=== PATIENT | female | born 1985 | race African-American/Black ===

== ENCOUNTER 2017-10-12 17:05 | Emergency (ER) | payer BC ==
[2017-10-12 18:13] LABS: Absolute Lymphocytes (CBC) 2.1 K/uL (0.7-4.9); Absolute Monocytes 0.5 K/uL (0.1-1.3); Absolute Neutrophil 6.2 K/uL (1.8-8.0); Basophils % 0.5 % (0-1.3); Eosinophils % 1.9 % (0-4.4); Hematocrit 36.9 % (36.0-45.0); Lymphocytes % 23.4 % (15.3-44.8); MCV 73.9 fL (80-100); MPV 7.7 fL (7.6-11.3); Monocytes % 5.4 % (3.3-12.3); RBC Red Blood Cell Count 4.99 M/uL (3.86-4.86)
--- NOTE | 2017-10-12 18:39 | RAD REPORT ---
EXAM DESCRIPTION: Lalo Single View10/12/2017 6:34 pm CLINICAL HISTORY: Chest pain COMPARISON: July 2017 FINDINGS: The lungs appear clear of acute infiltrate. The heart is normal size IMPRESSION: No acute abnormalities displayed
[2017-10-12 18:40] LABS: BUN Blood Urea Nitrogen 15 mg/dL (6-20); Bicarbonate 26 mEq/L (21-31); Glucose Level 121 mg/dL (65-120); Potassium 3.4 mEq/L (3.6-5.0); Sodium Level 135 mEq/L (135-145)
[2017-10-12] MEDS ORDERED: POTASSIUM CL SA 10 MEQ TAB PO ONE ×2 (18:53→18:54)
--- NOTE | 2017-10-12 20:04 | ER ---
Nurse's Notes [facility] Name: Tatyana Becerril Age: 32 yrs Sex: Female : 1985 Arrival Date: 10/12/2017 Time: 17:06 Bed 15 Private MD: Diagnosis: Chest pain, unspecified Presentation: 10/12 17:31 Presenting complaint: Patient states: Sternal chest pain that woke patient up from aj sleeping last week. Cough for 1 week. Also reports numbness to bilateral shoulders. Denies N/V. Transition of care: patient was not received from another setting of care. Onset of symptoms was October 05, 2017. Initial Sepsis Screen: Does the patient meet any 2 criteria? No. Patient's initial sepsis screen is negative. Does the patient have a suspected source of infection? No. Patient's initial sepsis screen is negative. Care prior to arrival: None. 17:31 Method Of Arrival: Ambulatory 17:31 Acuity: CAMDEN 3 Triage Assessment: 17:33 General: Appears in no apparent distress. comfortable, Behavior is calm, cooperative, aj appropriate for age. Pain: Complains of pain in chest Pain currently is 6 out of 10 on a pain scale. at worst was 9 out of 10 on a pain scale. Neuro: Level of Consciousness is awake, alert, obeys commands, Oriented to person, place, time, situation, Appropriate for age. Cardiovascular: Reports chest pain, Capillary refill < 3 seconds in bilateral fingers Patient's skin is warm and dry. Respiratory: Reports cough that is Airway is patent Respiratory effort is even, unlabored, Respiratory pattern is regular, symmetrical. Derm: Skin is intact, is healthy with good turgor, Skin is normal, black. 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 - Social history:: Smoking status: Patient/guardian denies using tobacco. Screenin:35 Abuse screen: Denies threats or abuse. Denies injuries from another. Nutritional jl7 screening: No deficits noted. Tuberculosis screening: No symptoms or risk factors identified. Fall Risk IV access (20 points). Total Simon Fall Scale indicates No Risk (0-24 pts). Assessment: 17:35 General: Appears in no apparent distress. uncomfortable, Behavior is calm, cooperative, jl7 appropriate for age. Pain: Complains of pain in mid-sternal area Pain radiates to right clavicle and left clavicle Pain currently is 8 out of 10 on a pain scale. Quality of pain is described as sharp, shooting, Pain began a week ago Is intermittent. Neuro: Level of Consciousness is awake, alert, obeys commands, Oriented to person, place, time, situation. Cardiovascular: Patient's skin is warm and dry. Respiratory: Airway is patent Respiratory effort is even, unlabored, Respiratory pattern is regular, symmetrical. GI: No signs and/or symptoms were reported involving the gastrointestinal system. : No signs and/or symptoms were reported regarding the genitourinary system. EENT: No signs and/or symptoms were reported regarding the EENT system. Derm: Skin is pink, warm \T\ dry. 19:08 Reassessment: Report received from LETICIA Vivas. NAD, AOX3. No reports of chest pain at bs1 this time. 19:30 Reassessment: Patient appears in no apparent distress at this time. Neuro: Level of bs1 Consciousness is awake, alert, obeys commands, Oriented to person, place, time, situation. Cardiovascular: Denies chest pain, palpitations, Capillary refill < 3 seconds Patient's skin is warm and dry. Respiratory: Airway is patent Trachea midline Respiratory effort is even, unlabored, Respiratory pattern is regular, symmetrical, Breath sounds are clear bilaterally. GI: No signs and/or symptoms were reported involving the gastrointestinal system. : No signs and/or symptoms were reported regarding the genitourinary system. EENT: No signs and/or symptoms were reported regarding the EENT system. Derm: Skin is pink, warm \T\ dry. Musculoskeletal: Circulation, motion, and sensation intact. Capillary refill < 3 seconds, Range of motion: intact in all extremities. 21:11 Reassessment: Patient appears in no apparent distress at this time. Patient and/or bs1 family updated on plan of care and expected duration. Pain level reassessed. Patient is alert, oriented x 3, equal unlabored respirations, skin warm/dry/pink. Patient states feeling better. Vital Signs: 17:33 BP 147 / 74; Pulse 96; Resp 17; Temp 97.7; Pulse Ox 100% on R/A; Weight 103.87 kg; aj Height 5 ft. 3 in. (160.02 cm); Pain 6/10; 18:47 BP 130 / 76; Pulse 84; Resp 16; Pulse Ox 100% ; jl7 19:45 BP 135 / 76; Pulse 74; Resp 14; Pulse Ox 99% on R/A; bs1 20:45 BP 137 / 79; Pulse 75; Pulse Ox 99% on R/A; bs1 21:08 BP 137 / 73; Pulse 75; Resp 14; Temp 98.0(O); Pulse Ox 99% on R/A; Pain 0/10; bs1 17:33 Body Mass Index 40.57 (103.87 kg, 160.02 cm) ED Course: 17:06 Patient arrived in ED. as 17:32 Triage completed. aj 17:33 Arm band placed on left wrist. Patient placed in an exam room. aj 17:34 Jim Lutz PA is PHCP. jr8 17:34 Richardson Berger MD is Attending Physician. jr8 17:35 Sangeetha Lacey RN is Primary Nurse. jl7 17:35 Patient has correct armband on for positive identification. Placed in gown. Bed in low jl7 position. Call light in reach. Side rails up X 1. security monitor on. Pulse ox on. NIBP on. Warm blanket given. 17:35 Patient maintains SpO2 saturation greater than 95% on room air. jl7 17:43 EKG done, by transportation engineering technician. reviewed by Jim HDZ. at1 18:00 Initial lab(s) drawn, by sc, sent to lab. Inserted saline lock: 20 gauge in left jl7 antecubital area, using aseptic technique. Blood collected. 18:33 X-ray completed. Portable x-ray completed in exam room. Patient tolerated procedure kc2 well. 18:35 XRAY Chest (1 view) In Process Unspecified. EDMS 19:07 Report given to LETICIA Torres. jl7 21:09 No provider procedures requiring assistance completed. IV discontinued, bleeding bs1 controlled, No redness/swelling at site. Pressure dressing applied. Administered Medications: 18:59 Drug: Potassium Chloride 20 mEq Route: PO; jl7 21:11 Follow up: Response: No adverse reaction bs1 Outcome: 20:04 Discharge ordered by . padma 21:09 Discharged to home ambulatory. bs1 21:09 Condition: stable 21:09 Discharge instructions given to patient, Instructed on discharge instructions, follow up and referral plans. medication usage, Demonstrated understanding of instructions, follow-up care, medications, Prescriptions given X 1, Patient states understanding of POC 21:13 Patient left the ED. bs1 Signatures: Dispatcher [employer] EDMS Jane Osuna, RN RN Isabel Lee Josh, PA PA jr8 Jane hall, graphic production artist EKG Tat1 Lisa Horton2 Sangeetha Lacey RN RN jl7 Kenyetta Salamanca, RN RN bs1
--- NOTE | 2017-10-12 20:05 | EDPHYS ---
Physician Documentation [facility] Name: Tatyana Becerril Age: 32 yrs Sex: Female : 1985 Arrival Date: 10/12/2017 Time: 17:06 Bed 15 Private MD: ED Physician Richardson Berger HPI: 10/12 18:38 This 32 yrs old Black Female presents to ER via Ambulatory with complaints of Cough, jr8 Chest Pain. 18:38 The patient or guardian reports cough, that is intermittent, described as mild, with no jr8 sputum. Onset: The symptoms/episode began/occurred acutely, yesterday. Severity of symptoms: At their worst the symptoms were mild, in the emergency department the symptoms are unchanged. Modifying factors: The symptoms are alleviated by nothing, the symptoms are aggravated by nothing. Associated signs and symptoms: Pertinent positives: chest pain. The patient has not experienced similar symptoms in the past. The patient has not recently seen a physician. 18:38 Stated that she had been coughing and thought it may be a cold. Last night while jr8 sleeping had sudden onset of severe chest pain. Feels better if she moves in a particular way to relieve pain . 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 - Social history:: Smoking status: Patient/guardian denies using tobacco. ROS: 18:38 Eyes: Negative for injury, pain, redness, and discharge, ENT: Negative for injury, jr8 pain, and discharge, Neck: Negative for injury, pain, and swelling, Abdomen/GI: Negative for abdominal pain, nausea, vomiting, diarrhea, and constipation, Back: Negative for injury and pain, MS/Extremity: Negative for injury and deformity, Skin: Negative for injury, rash, and discoloration, Neuro: Negative for headache, weakness, numbness, tingling, and seizure. 18:38 Cardiovascular: Positive for chest pain, Negative for edema, orthopnea, palpitations, paroxysmal nocturnal dyspnea. 18:38 Respiratory: Positive for cough, Negative for dyspnea on exertion, hemoptysis, orthopnea, pleurisy, shortness of breath, sputum production, wheezing. Exam: 18:38 Eyes: Pupils equal round and reactive to light, extra-ocular motions intact. Lids and jr8 lashes normal. Conjunctiva and sclera are non-icteric and not injected. Cornea within normal limits. Periorbital areas with no swelling, redness, or edema. ENT: Nares patent. No nasal discharge, no septal abnormalities noted. Tympanic membranes are normal and external auditory canals are clear. Oropharynx with no redness, swelling, or masses, exudates, or evidence of obstruction, uvula midline. Mucous membranes moist. Neck: Trachea midline, no thyromegaly or masses palpated, and no cervical lymphadenopathy. Supple, full range of motion without nuchal rigidity, or vertebral point tenderness. No Meningismus. Chest/axilla: Normal chest wall appearance and motion. Nontender with no deformity. No lesions are appreciated. Cardiovascular: Regular rate and rhythm with a normal S1 and S2. No gallops, murmurs, or rubs. Normal PMI, no JVD. No pulse deficits. Respiratory: Lungs have equal breath sounds bilaterally, clear to auscultation and percussion. No rales, rhonchi or wheezes noted. No increased work of breathing, no retractions or nasal flaring. Abdomen/GI: Soft, non-tender, with normal bowel sounds. No distension or tympany. No guarding or rebound. No evidence of tenderness throughout. Back: No spinal tenderness. No costovertebral tenderness. Full range of motion. Skin: Warm, dry with normal turgor. Normal color with no rashes, no lesions, and no evidence of cellulitis. MS/ Extremity: Pulses equal, no cyanosis. Neurovascular intact. Full, normal range of motion. Neuro: Awake and alert, GCS 15, oriented to person, place, time, and situation. Cranial nerves II-XII grossly intact. Motor strength 5/5 in all extremities. Sensory grossly intact. Cerebellar exam normal. Normal gait. Vital Signs: 17:33 BP 147 / 74; Pulse 96; Resp 17; Temp 97.7; Pulse Ox 100% on R/A; Weight 103.87 kg; aj Height 5 ft. 3 in. (160.02 cm); Pain 6/10; 18:47 BP 130 / 76; Pulse 84; Resp 16; Pulse Ox 100% ; jl7 19:45 BP 135 / 76; Pulse 74; Resp 14; Pulse Ox 99% on R/A; bs1 20:45 BP 137 / 79; Pulse 75; Pulse Ox 99% on R/A; bs1 21:08 BP 137 / 73; Pulse 75; Resp 14; Temp 98.0(O); Pulse Ox 99% on R/A; Pain 0/10; bs1 17:33 Body Mass Index 40.57 (103.87 kg, 160.02 cm) aj MDM: 17:34 Patient medically screened. jr8 20:03 Data reviewed: vital signs, nurses notes, lab test result(s), EKG, radiologic studies, jr8 plain films, and as a result, I will discharge patient. Data interpreted: Pulse oximetry: on room air is 100 %. Interpretation: normal. Counseling: I had a detailed discussion with the patient and/or guardian regarding: the historical points, exam findings, and any diagnostic results supporting the discharge/admit diagnosis, lab results, radiology results, the need for outpatient follow up, a family practitioner, to return to the emergency department if symptoms worsen or persist or if there are any questions or concerns that arise at home. 10/12 17:54 Order name: CBC with Diff; Complete Time: 18:32 8 10/12 17:54 Order name: Basic Metabolic Panel; Complete Time: 18:40 8 10/12 17:54 Order name: EKG - Nurse/Tech; Complete Time: 18:07 8 10/12 17:54 Order name: XRAY Chest (1 view); Complete Time: 18:40 [facility] 10/12 17:54 Order name: Troponin (emerg Dept Use Only); Complete Time: 18:37 8 10/12 17:54 Order name: IV; Complete Time: 18:07 8 Administered Medications: 18:59 Drug: Potassium Chloride 20 mEq Route: PO; jl7 21:11 Follow up: Response: No adverse reaction bs1 Disposition: 10/12/17 20:04 Discharged to Home. Impression: Chest pain, unspecified. - Condition is Stable. - Discharge Instructions: Nonspecific Chest Pain. - Prescriptions for Ibuprofen 800 mg Oral Tablet - take 1 tablet by ORAL route every 12 hours As needed take with food; 20 tablet. - Medication Reconciliation Form, Thank You Letter, Antibiotic Education, Prescription Opioid Use form. - Follow up: Private Physician; When: 2 - 3 days; Reason: Recheck today's complaints, Continuance of care, Re-evaluation by your physician. - Problem is new. - Symptoms have improved. Addendum: 10/15/2017 19:03 Co-signature as Attending Physician, Richardson Berger MD. r n Signatures: Dispatcher [employer] EDJane Garrett RN RN aj Nieto, Roman, MD MD rn Roszak, Josh, PA PA jr8 Sangeetha Lacey RN RN jl7 Kenyetta Salamanca RN RN bs1
[2017-10-12 21:23] VITALS: O2SAT 99
[2017-10-12 21:27] VITALS: BP 137/73; TEMP 98
--- NOTE | 2017-10-13 15:43 | EKG ---
Test Date: 2017-10-12 Test Time: 17:32:37 Alterations Sewer: JESS MEASUREMENT RESULTS: Intervals: Rate: 90 MT: 144 QRSD: 80 QT: 376 QTc: 459 Bowers: P: 52 MT: 144 QRS: -3 T: 39 INTERPRETIVE STATEMENTS: Normal sinus rhythm Normal ECG Compared to ECG 07/30/2017 22:08:08 T-wave abnormality no longer present Possible ischemia no longer present Electronically Signed On 10-13-17 15:38:06 CDT by Dada Chavez
== END 2017-10-12 21:13 | disposition home or self-care (01) ==
LOC: ER 17:05
DX: R07.9 Chest pain, unspecified (principal); R00.2 Palpitations; R05 Cough
CPT/HCPCS: 36415; 71045; 80048; 84484; 85025; 93005; 99285

== ENCOUNTER 2017-11-06 17:24 | Emergency (ER) | payer BC ==
--- NOTE | 2017-11-06 18:05 | ER ---
Nurse's Notes [facility] Name: Tatyana Becerril Age: 32 yrs Sex: Female : 1985 Arrival Date: 11/06/2017 Time: 17:27 Bed 8 Private MD: Diagnosis: Cough;Acute upper respiratory infection, unspecified Presentation: 11/06 17:39 Presenting complaint: Patient states: I have had a cough for 2 weeks and now I am la1 getting pain with my cough and I got dizzy at work. Transition of care: patient was not received from another setting of care. Onset of symptoms was November 06, 2017. Initial Sepsis Screen: Does the patient meet any 2 criteria? No. Patient's initial sepsis screen is negative. Does the patient have a suspected source of infection? No. Patient's initial sepsis screen is negative. Care prior to arrival: None. 17:39 Method Of Arrival: Ambulatory la1 17:39 Acuity: CAMDEN 3 la1 SEXER: 17:40 LMP 11/02/2017 la1 Historical: - Allergies: 17:40 No Known Allergies; la1 - PMHx: 17:40 None; la1 - Immunization history:: Adult Immunizations up to date. - Social history:: Smoking status: Patient/guardian denies using tobacco. - Family history:: not pertinent. Screenin:59 Abuse screen: Denies threats or abuse. Nutritional screening: No deficits noted. tw2 Tuberculosis screening: No symptoms or risk factors identified. Fall Risk None identified. Assessment: 17:57 General: Appears in no apparent distress. obese, well groomed, Behavior is calm, tw2 cooperative, appropriate for age. Pain: Denies pain. Neuro: Level of Consciousness is awake, alert, obeys commands, Oriented to person, place, time, situation. Cardiovascular: Denies chest pain, shortness of breath, Heart tones S1 S2 Capillary refill < 3 seconds Patient's skin is warm and dry. Respiratory: Respiratory effort is even, unlabored, Respiratory pattern is regular, symmetrical, Sputum is green Breath sounds are clear bilaterally. GI: No signs and/or symptoms were reported involving the gastrointestinal system. Abdomen is round obese, Bowel sounds present X 4 quads. : No signs and/or symptoms were reported regarding the genitourinary system. EENT: No signs and/or symptoms were reported regarding the EENT system. Derm: No signs and/or symptoms reported regarding the dermatologic system. Skin is intact, is healthy with good turgor, Skin temperature is warm. Musculoskeletal: Range of motion: intact in all extremities. 17:57 Neuro: Level of Consciousness is awake, alert, obeys commands, Oriented to person, aa5 place, time, situation. Respiratory: Airway is patent Respiratory effort is even, unlabored, Respiratory pattern is regular, symmetrical. Derm: Skin is dry, Skin is normal, Skin temperature is warm. Vital Signs: 17:40 BP 146 / 93; Pulse 74; Resp 15; Temp 98.2; Pulse Ox 100% on R/A; Weight 102.06 kg; la1 Height 5 ft. 3 in. (160.02 cm); 17:40 Body Mass Index 39.86 (102.06 kg, 160.02 cm) la1 ED Course: 17:27 Patient arrived in ED. sb2 17:40 Triage completed. la1 17:40 Arm band placed on left wrist. la1 17:54 Diane Alonso RN is Primary Nurse. tw2 17:55 Alan Moss MD is Attending Physician. [facility] 17:59 Bed in low position. Pulse ox on. NIBP on. tw2 18:24 X-ray completed. kp1 18:25 Chest Pa And Lat (2 Views) XRAY In Process Unspecified. EDMS 18:38 Awaiting for x-ray, Awaiting: results prior to discharge. tw2 18:48 No provider procedures requiring assistance completed. aa5 18:48 Patient did not have IV access during this emergency room visit. aa5 Administered Medications: 18:10 Drug: Zithromax 500 mg Route: PO; tw2 18:50 Follow up: Response: No adverse reaction aa5 Outcome: 18:04 Discharge ordered by . [facility] 18:50 Discharged to home ambulatory. aa5 18:50 Condition: stable 18:50 Discharge instructions given to patient, Instructed on discharge instructions, follow up and referral plans. medication usage, Demonstrated understanding of instructions, follow-up care, medications, Prescriptions given X 2. 18:51 Patient left the ED. aa5 Signatures: Dispatcher [employer] EDSC Alan Moss MD MD cha Calderon, Audri RN RN aa5 Abdon Pack RN RN la1 Diane Alonso RN RN tw2 Mary Beth Rowland kp1 Josselyn Franco sb2
--- NOTE | 2017-11-06 18:05 | EDPHYS ---
Physician Documentation [facility] Name: Tatyana Becerril Age: 32 yrs Sex: Female : 1985 Arrival Date: 11/06/2017 Time: 17:27 Bed 8 Private MD: ED Physician Alan Moss HPI: 11/06 18:00 This 32 yrs old Black Female presents to ER via Ambulatory with complaints of Chest ulysses Congestion, Cough, Dizziness. 18:00 The patient or guardian reports cough. Onset: The symptoms/episode began/occurred 2 ulysses week(s) ago. Severity of symptoms: At their worst the symptoms were mild, in the emergency department the symptoms are unchanged. Modifying factors: The symptoms are alleviated by nothing, the symptoms are aggravated by nothing. Associated signs and symptoms: The patient has no apparent associated signs or symptoms. The patient has not experienced similar symptoms in the past. 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 - Social history:: Smoking status: Patient/guardian denies using tobacco. - Family history:: not pertinent. ROS: 18:00 Constitutional: Negative for fever, chills, and weight loss, Eyes: Negative for injury, ulysses pain, redness, and discharge, ENT: Negative for injury, pain, and discharge, Neck: Negative for injury, pain, and swelling, Cardiovascular: Negative for chest pain, palpitations, and edema, Abdomen/GI: Negative for abdominal pain, nausea, vomiting, diarrhea, and constipation, Back: Negative for injury and pain, : Negative for injury, bleeding, discharge, and swelling, MS/Extremity: Negative for injury and deformity, Skin: Negative for injury, rash, and discoloration, Neuro: Negative for headache, weakness, numbness, tingling, and seizure, Psych: Negative for depression, anxiety, suicide ideation, homicidal ideation, and hallucinations, Allergy/Immunology: Negative for hives, rash, and allergies, Endocrine: Negative for neck swelling, polydipsia, polyuria, polyphagia, and marked weight changes, Hematologic/Lymphatic: Negative for swollen nodes, abnormal bleeding, and unusual bruising. 18:00 Respiratory: Positive for cough, with no reported sputum. Exam: 18:00 Constitutional: This is a well developed, well nourished patient who is awake, alert, ulysses and in no acute distress. Head/Face: Normocephalic, atraumatic. Eyes: Pupils equal round and reactive to light, extra-ocular motions intact. Lids and lashes normal. Conjunctiva and sclera are non-icteric and not injected. Cornea within normal limits. Periorbital areas with no swelling, redness, or edema. ENT: Nares patent. No nasal discharge, no septal abnormalities noted. Tympanic membranes are normal and external auditory canals are clear. Oropharynx with no redness, swelling, or masses, exudates, or evidence of obstruction, uvula midline. Mucous membranes moist. Neck: Trachea midline, no thyromegaly or masses palpated, and no cervical lymphadenopathy. Supple, full range of motion without nuchal rigidity, or vertebral point tenderness. No Meningismus. Chest/axilla: Normal chest wall appearance and motion. Nontender with no deformity. No lesions are appreciated. Cardiovascular: Regular rate and rhythm with a normal S1 and S2. No gallops, murmurs, or rubs. Normal PMI, no JVD. No pulse deficits. Respiratory: Lungs have equal breath sounds bilaterally, clear to auscultation and percussion. No rales, rhonchi or wheezes noted. No increased work of breathing, no retractions or nasal flaring. Abdomen/GI: Soft, non-tender, with normal bowel sounds. No distension or tympany. No guarding or rebound. No evidence of tenderness throughout. Back: No spinal tenderness. No costovertebral tenderness. Full range of motion. Female : Normal external genitalia. Skin: Warm, dry with normal turgor. Normal color with no rashes, no lesions, and no evidence of cellulitis. MS/ Extremity: Pulses equal, no cyanosis. Neurovascular intact. Full, normal range of motion. Neuro: Awake and alert, GCS 15, oriented to person, place, time, and situation. Cranial nerves II-XII grossly intact. Motor strength 5/5 in all extremities. Sensory grossly intact. Cerebellar exam normal. Normal gait. Psych: Awake, alert, with orientation to person, place and time. Behavior, mood, and affect are within normal limits. Vital Signs: 17:40 BP 146 / 93; Pulse 74; Resp 15; Temp 98.2; Pulse Ox 100% on R/A; Weight 102.06 kg; la1 Height 5 ft. 3 in. (160.02 cm); 17:40 Body Mass Index 39.86 (102.06 kg, 160.02 cm) la1 MDM: 18:03 Data reviewed: vital signs, nurses notes, lab test result(s), EKG, radiologic studies. [facility] 18:04 Patient medically screened. [facility] 11/06 18:15 Order name: Urine Dipstick--Ancillary (enter results) 11/06 18:15 Order name: Urine --Ancillary (enter results) 11/06 18:00 Order name: Urine Dipstick-Ancillary (obtain specimen); Complete Time: 18:13 [facility] 11/06 18:00 Order name: Chest Pa And Lat (2 Views) XRAY [facility] 11/06 18:00 Order name: EKG; Complete Time: 18:01 [facility] 11/06 18:00 Order name: Urine Test (obtain specimen); Complete Time: 18:13 [facility] 11/06 18:00 Order name: EKG - Nurse/Tech; Complete Time: 18:13 [facility] Administered Medications: 18:10 Drug: Zithromax 500 mg Route: PO; tw2 18:50 Follow up: Response: No adverse reaction aa5 Disposition: 11/06/17 18:04 Discharged to Home. Impression: Cough, Acute upper respiratory infection, unspecified. - Condition is Stable. - Discharge Instructions: Cool Mist Vaporizers, Upper Respiratory Infection, Adult, [id number], Cough, Adult, [id number], Cough, Adult. - Prescriptions for Cheratussin AC 10- 100 mg/5 mL Oral liquid - take 10 milliliter by ORAL route every 6 hours; 150 milliliter. Zithromax 500 mg Oral Tablet - take 1 tablet by ORAL route once daily for 4 days; 4 tablet. - Medication Reconciliation Form, Thank You Letter, Antibiotic Education, Prescription Opioid Use form. - Follow up: Private Physician; When: 2 - 3 days; Reason: Recheck today's complaints, Continuance of care, Re-evaluation by your physician. - Problem is new. - Symptoms have improved. Signatures: Dispatcher [employer] EDAlan Will MD MD cha Calderon, Audri RN RN aa5 Abdon Pack RN RN la1 Diane Alonso RN RN tw2 Corrections: (The following items were deleted from the chart) 18:51 18:04 11/06/2017 18:04 Discharged to Home. Impression: Cough; Acute upper respiratory aa5 infection, unspecified. Condition is Stable. Forms are Medication Reconciliation Form, Thank You Letter, Antibiotic Education, Prescription Opioid Use. Follow up: Private Physician; When: 2 - 3 days; Reason: Recheck today's complaints, Continuance of care, Re-evaluation by your physician. Problem is new. Symptoms have improved. ulysses
[2017-11-06] MEDS ORDERED: AZITHROMYCIN 250 MG TAB ONE (18:08)
[2017-11-06 18:43] LABS: Urine Blood 2+ (NEG); Urine Glucose NEGATIVE (NEG); Urine Protein NEGATIVE (NEG); Urine Specific Gravity >1.030 (1.005-1.030)
[2017-11-06 18:55] VITALS: BP 146/93; TEMP 98.2; O2SAT 100
--- NOTE | 2017-11-06 19:55 | RAD REPORT ---
EXAM DESCRIPTION: Lalo Sykes (2 Views)11/06/2017 6:28 pm CLINICAL HISTORY: Cough COMPARISON: None FINDINGS: The lungs appear clear of acute infiltrate. The heart is normal size Curvilinear lucencies overlying the upper chest and neck IMPRESSION: Curvilinear lucencies overlying the upper chest and neck presumably related to hair. Sub cutaneous emphysema can also have this appearance. If the patient has clinical symptoms to suggest th is then a repeat frontal chest film with the hair out of the field of view would be recommended for r e-evaluation
--- NOTE | 2017-11-07 08:01 | EKG ---
Test Date: 2017-11-06 Test Time: 18:09:48 Facilities Director: KIM MEASUREMENT RESULTS: Intervals: Rate: 72 SD: 152 QRSD: 78 QT: 412 QTc: 451 [place]: P: 43 SD: 152 QRS: 4 T: 29 INTERPRETIVE STATEMENTS: Normal sinus rhythm Low voltage QRS Borderline ECG Compared to ECG 10/12/2017 17:32:37 Low QRS voltage now present Electronically Signed On 11-07-17 07:59:49 CDT by Jem Delcid
== END 2017-11-06 18:51 | disposition home or self-care (01) ==
LOC: ER 17:24
DX: J06.9 Acute upper respiratory infection, unspecified (principal)
CPT/HCPCS: 71046; 81003; 81025; 93005; 99284

== ENCOUNTER 2018-06-27 10:29 | Emergency (ER) | payer BC ==
[2018-06-27] MEDS ORDERED: MAGNE/ALUM HYDROXD 30 ML UCUP ONE (11:27)
[2018-06-27] MEDS ORDERED: LIDOCAINE VISCOUS 2% SOLN 15 ML UDC ONE (11:27)
--- NOTE | 2018-06-27 12:03 | EKG ---
Test Date: 2018-06-27 Test Time: 11:26:09 Recreation Activities Coordinator: BRIAN MEASUREMENT RESULTS: Intervals: Rate: 75 MO: 146 QRSD: 76 QT: 386 QTc: 431 [place]: P: 70 MO: 146 QRS: 60 T: 48 INTERPRETIVE STATEMENTS: Normal sinus rhythm Low voltage QRS Borderline ECG Compared to ECG 11/06/2017 18:09:48 No significant changes Electronically Signed On 06-27-18 12:03:12 HOSE TURNER by Dada Chavez
--- NOTE | 2018-06-27 12:08 | ER ---
Nurse's Notes 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 Transition of care: patient was not received from another setting of care. Onset of symptoms was June 27, 2018. Risk Assessment: Do you want to hurt yourself or someone else? Patient reports no desire to harm self or others. Initial Sepsis Screen: Does the patient meet any 2 criteria? No. Patient's initial sepsis screen is negative. Does the patient have a suspected source of infection? No. Patient's initial sepsis screen is negative. Care prior to arrival: None. 10:34 Method Of Arrival: Ambulatory 10:34 Acuity: [place] 3 hj Triage Assessment: 10:36 General: Appears in no apparent distress. uncomfortable, Behavior is calm, cooperative, hj appropriate for age. Pain: Complains of pain in chest and abdomen. 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 - Social history:: Smoking status: Patient/guardian denies using tobacco, Patient/guardian denies using alcohol. - Ebola Screening: : Patient negative for fever greater than or equal to 101.5 degrees Fahrenheit, and additional compatible Ebola Virus Disease symptoms Patient denies exposure to infectious person Patient denies travel to an Ebola-affected area in the 21 days before illness onset. - Family history:: not pertinent. - Hospitalizations: : No recent hospitalization is reported. Screenin:37 Abuse screen: Denies threats or abuse. Denies injuries from another. Nutritional hj screening: No deficits noted. Tuberculosis screening: No symptoms or risk factors identified. Fall Risk None identified. Assessment: 11:27 General: Appears in no apparent distress. Pain: Complains of pain in abdomen and chest ls4 Pain currently is 7 out of 10 on a pain scale. Neuro: No deficits noted. Cardiovascular: No deficits noted. Respiratory: No deficits noted. Musculoskeletal: No deficits noted. 12:23 Reassessment: Patient appears in no apparent distress at this time. Patient and/or ls4 family updated on plan of care and expected duration. Pain level reassessed. Patient is alert, oriented x 3, equal unlabored respirations, skin warm/dry/pink. Patient states feeling better. Patient states symptoms have improved. Vital Signs: 10:37 BP 134 / 76; Pulse 82; Resp 18; Temp 98.1(TE); Pulse Ox 100% on R/A; Weight 107.05 kg; hj Height 5 ft. 3 in. (160.02 cm); Pain 7/10; 11:30 BP 129 / 70; Pulse 78; Resp 16; Temp 98.4; Pulse Ox 100% ; ls4 12:28 BP 130 / 72; Pulse 74; Resp 18; Temp 98.4; Pulse Ox 100% on R/A; Pain 0/10; ls4 10:37 Body Mass Index 41.81 (107.05 kg, 160.02 cm) hj ED Course: 10:34 Patient arrived in ED. sb2 10:35 Randy Marti is Private Physician. sb2 10:36 Triage completed. hj 10:37 Arm band placed on left wrist. hj 10:40 Patient has correct armband on for positive identification. Placed in gown. Bed in low hj position. Call light in reach. Side rails up X 1. 10:42 Mallika Vieira, LETICIA is Primary Nurse. ls4 10:51 Richardson Berger MD is Attending Physician. rn 11:33 EKG done, by mosaic technician. reviewed by Richardson Berger MD. tc 12:23 No provider procedures requiring assistance completed. ls4 Administered Medications: 11:15 Drug: GI Cocktail without - (Maalox Suspension 30 ml, Lidocaine Liquid 2 % 15 ls4 ml) Route: PO; 11:34 Follow up: Response: No adverse reaction ls4 Outcome: 12:07 Discharge ordered by . rn 12:23 Discharged to home ambulatory. ls4 12:23 Condition: stable 12:23 Discharge instructions given to patient, Instructed on discharge instructions, follow up and referral plans. medication usage, safety practices, Demonstrated understanding of instructions, follow-up care, medications. 12:29 Patient left the ED. ls4 Signatures: Richardson Berger MD MD rn Callis, Tiffany, concrete journeyman EKG Ttc Jose Rice RN RN Josselyn Franco 2 Mallika Vieira RN RN ls4 Corrections: (The following items were deleted from the chart) 10:39 10:34 Presenting complaint: Patient states: i feel like a bad acid reflux for moths hj now, yolanda been taking OTC acid correctional program officer for months and its not helping lately, now my chest hurts; non radiating pain; denies taking meds TRAVEL PT:denies N/V; hj 10:40 10:37 Pulse 82bpm; Resp 18bpm; Pulse Ox 100% RA; Temp 98.1F Temporal; 107.05 kg; Height hj 5 ft. 3 in.; BMI: 41.8; Pain 7/10; hj
--- NOTE | 2018-06-27 12:08 | EDPHYS ---
Physician Documentation [facility] Name: Tatyana Becerril Age: 32 yrs Sex: Female : 1985 Arrival Date: 06/27/2018 Time: 10:34 Bed 24 Private MD: Randy Marti ED Physician Richardson Berger HPI: 06/27 11:02 This 32 yrs old Black Female presents to ER via Ambulatory with complaints of acid rn reflux. 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 . Onset: The symptoms/episode began/occurred last night. Severity of symptoms: At their worst the symptoms were mild in the emergency department the symptoms are unchanged. The patient has experienced similar episodes in the past. The patient has not recently seen a physician. 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 - Social history:: Smoking status: Patient/guardian denies using tobacco, Patient/guardian denies using alcohol. - Ebola Screening: : Patient negative for fever greater than or equal to 101.5 degrees Fahrenheit, and additional compatible Ebola Virus Disease symptoms Patient denies exposure to infectious person Patient denies travel to an Ebola-affected area in the 21 days before illness onset. - Family history:: not pertinent. - Hospitalizations: : No recent hospitalization is reported. ROS: 11:02 Constitutional: Negative for fever, chills, and weight loss, Eyes: Negative for injury, rn pain, redness, and discharge, Cardiovascular: Negative for palpitations, and edema, Respiratory: Negative for shortness of breath, cough, wheezing, and pleuritic chest pain, Abdomen/GI: Negative for abdominal pain, nausea, vomiting, diarrhea, and constipation, MS/Extremity: Negative for injury and deformity, Skin: Negative for injury, rash, and discoloration, Neuro: Negative for headache, weakness, numbness, tingling, and seizure. Exam: 11:02 Constitutional: This is a well developed, well nourished patient who is awake, alert, rn and in no acute distress. Head/Face: Normocephalic, atraumatic. ENT: MMM Cardiovascular: Regular rate and rhythm. No pulse deficits. Respiratory: Lungs have equal breath sounds bilaterally, clear to auscultation, No increased work of breathing, no retractions or nasal flaring. Abdomen/GI: soft, non-tender Skin: Warm, dry with normal turgor. Normal color with no rashes, no lesions, and no evidence of cellulitis. MS/ Extremity: Pulses equal, no cyanosis. Neurovascular intact. Full, normal range of motion. Equal circumference. Neuro: Awake and alert, GCS 15, oriented to person, place, time, and situation. Vital Signs: 10:37 BP 134 / 76; Pulse 82; Resp 18; Temp 98.1(TE); Pulse Ox 100% on R/A; Weight 107.05 kg; hj Height 5 ft. 3 in. (160.02 cm); Pain 7/10; 11:30 BP 129 / 70; Pulse 78; Resp 16; Temp 98.4; Pulse Ox 100% ; ls4 12:28 BP 130 / 72; Pulse 74; Resp 18; Temp 98.4; Pulse Ox 100% on R/A; Pain 0/10; ls4 10:37 Body Mass Index 41.81 (107.05 kg, 160.02 cm) MDM: 10:51 Patient medically screened. rn 12:06 Differential Diagnosis acid reflux, GERD. Data reviewed: vital signs, nurses notes, clinical laboratory scientist test result(s), urinalysis, and as a result, I will discharge patient. Counseling: I had a detailed discussion with the patient and/or guardian regarding: the historical points, exam findings, and any diagnostic results supporting the discharge/admit diagnosis, lab results, the need for outpatient follow up, to return to the emergency department if symptoms worsen or persist or if there are any questions or concerns that arise at home. Response to treatment: the patient's symptoms have markedly improved after treatment, and as a result, I will discharge patient. Special discussion: I discussed with the patient/guardian in detail that at this point there is no indication for admission to the hospital. It is understood, however, that if the symptoms persist or worsen the patient needs to return immediately for re-evaluation. ED course: Recommended diet modification and continuation of reflux meds.. 06/27 11:31 Order name: Urine Dipstick--Ancillary (enter results); Complete Time: 12:19 eb 06/27 11:31 Order name: Urine --Ancillary (enter results); Complete Time: 12:19 eb 06/27 10:40 Order name: EKG; Complete Time: 11:05 hj 06/27 10:58 Order name: Urine Dipstick-Ancillary (obtain specimen); Complete Time: 11:26 rn 06/27 10:58 Order name: Urine Test (obtain specimen); Complete Time: 11:26 rn Administered Medications: 11:15 Drug: GI Cocktail without - (Maalox Suspension 30 ml, Lidocaine Liquid 2 % 15 ls4 ml) Route: PO; 11:34 Follow up: Response: No adverse reaction ls4 Disposition: 06/27/18 12:07 Discharged to Home. Impression: Gastro-esophageal reflux disease. - Condition is Stable. - Discharge Instructions: Gastroesophageal Reflux Disease, Adult. - Medication Reconciliation Form, Thank You Letter, Antibiotic Education, Prescription Opioid Use form. - Follow up: Private Physician; When: As needed; Reason: Recheck today's complaints, Re-evaluation by your physician. - Problem is an ongoing problem. - Symptoms have improved. Signatures: Dispatcher [employer] EDMS Richardsno Berger MD MD rn Joaquin, Henry, RN RN hj Stewart, Lisa, RN RN ls4 Corrections: (The following items were deleted from the chart) 12:29 12:07 06/27/2018 12:07 Discharged to Home. Impression: Gastro-esophageal reflux ls4 disease. Condition is Stable. Forms are Medication Reconciliation Form, Thank You Letter, Antibiotic Education, Prescription Opioid Use. Follow up: Private Physician; When: As needed; Reason: Recheck today's complaints, Re-evaluation by your physician. Problem is an ongoing problem. Symptoms have improved. rn
[2018-06-27 12:11] LABS: Urine Blood NEGATIVE (NEG); Urine Glucose NEGATIVE (NEG); Urine Protein TRACE (NEG)
[2018-06-27 16:26] VITALS: O2SAT 100
[2018-06-27 16:27] VITALS: TEMP 98.4
[2018-06-27 16:29] VITALS: BP 130/72
== END 2018-06-27 12:29 | disposition home or self-care (01) ==
LOC: ER 10:29
DX: K21.9 Gastro-esophageal reflux disease without esophagitis (principal)
CPT/HCPCS: 81003; 81025; 93005; 99283

== ENCOUNTER 2018-07-28 12:01 | Emergency (ER) | payer BC ==
--- NOTE | 2018-07-28 12:59 | RAD REPORT ---
EXAM DESCRIPTION: Lalo Sykes (2 Views)07/28/2018 12:43 pm CLINICAL HISTORY: Chest pain COMPARISON: None FINDINGS: The lungs appear clear of acute infiltrate. The heart is normal size IMPRESSION: No acute abnormalities displayed
[2018-07-28] MEDS ORDERED: IBUPROFEN 400 MG TAB ONE (16:38)
[2018-07-28 16:54] LABS: Urine Blood NEGATIVE (NEG); Urine Glucose NEGATIVE (NEG); Urine Protein NEGATIVE (NEG); Urine pH 5.5 (5.0-7.0)
--- NOTE | 2018-07-28 17:05 | ER ---
Nurse's Notes [facility] Name: Tatyana Becerril Age: 32 yrs Sex: Female : 1985 Arrival Date: 07/28/2018 Time: 12:05 Bed 27 Private MD: Randy Marti Diagnosis: Chest pain on breathing;Chest pain, unspecified Presentation: 07/28 12:08 Presenting complaint: Patient states: left mid back pain hurts worse with breathing and sv radiates down to the LLE x 1 week. c/o left arm tingling. Transition of care: patient was not received from another setting of care. Onset of symptoms was July 2018. Care prior to arrival: None. 12:08 Method Of Arrival: Ambulatory sv 12:08 Acuity: [place] 3 sv 15:49 Risk Assessment: Do you want to hurt yourself or someone else? Patient reports no mg2 desire to harm self or others. Initial Sepsis Screen: Does the patient meet any 2 criteria? No. Patient's initial sepsis screen is negative. Does the patient have a suspected source of infection? No. Patient's initial sepsis screen is negative. Triage Assessment: 12:11 General: Appears in no apparent distress. uncomfortable, Behavior is calm, cooperative, sv appropriate for age. Pain: Complains of pain in left mid back Pain radiates to left arm and left leg Pain currently is 8 out of 10 on a pain scale. Neuro: Level of Consciousness is awake, alert, obeys commands, Oriented to person, place, time, situation, Gait is steady. Respiratory: Respiratory effort is even, unlabored, Respiratory pattern is regular, symmetrical. 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 - Social history:: Smoking status: Patient/guardian denies using tobacco. - Ebola Screening: : No symptoms or risks identified at this time. Screenin:49 Abuse screen: Denies threats or abuse. Denies injuries from another. Nutritional mg2 screening: No deficits noted. Tuberculosis screening: No symptoms or risk factors identified. Fall Risk None identified. Assessment: 15:48 Reassessment: patient sleeping on bed. mg2 16:34 General: Appears in no apparent distress. comfortable, Behavior is calm, cooperative. mg2 Pain: Pain: Complains of pain in left mid back Pain radiates to left leg Pain currently is 5 out of 10 on a pain scale. Quality of pain is described as aching, Pain began gradually, Is intermittent. 16:42 Neuro: Level of Consciousness is awake, alert, obeys commands, Oriented to person, mg2 place, time, situation. Cardiovascular: Capillary refill < 3 seconds Patient's skin is warm and dry. Respiratory: Airway is patent Respiratory effort is even, unlabored, Respiratory pattern is regular, symmetrical. GI: No signs and/or symptoms were reported involving the gastrointestinal system. : No signs and/or symptoms were reported regarding the genitourinary system. EENT: No signs and/or symptoms were reported regarding the EENT system. Derm: Skin is intact, is healthy with good turgor, Skin is pink, warm \T\ dry. normal. Musculoskeletal: Circulation, motion, and sensation intact. Capillary refill < 3 seconds, Reports pain in left mid back. Vital Signs: 12:09 BP 128 / 89; Pulse 83; Resp 18; Temp 98.4; Pulse Ox 100% ; Weight 106.14 kg; Height 5 sv ft. 3 in. (160.02 cm); Pain 8/10; 16:44 BP 130 / 86; Pulse 74; Resp 18; Pulse Ox 100% on R/A; Pain 4/10; mg2 12:09 Body Mass Index 41.45 (106.14 kg, 160.02 cm) sv ED Course: 12:05 Patient arrived in ED. sb2 12:05 Randy Marti is Private Physician. sb2 12:09 Triage completed. sv 12:11 Arm band placed on Patient placed in waiting room, Patient notified of wait time. sv 12:46 Chest Pa And Lat (2 Views) XRAY In Process Unspecified. EDMS 14:31 Mono Turcios MD is Attending Physician. kdr 14:52 Christiano Miller, LETICIA is Primary Nurse. mg2 15:49 Patient has correct armband on for positive identification. mg2 15:49 No provider procedures requiring assistance completed. Patient did not have IV access mg2 during this emergency room visit. 17:04 Randy Marti is Referral Physician. kdr Administered Medications: 16:34 Drug: Ibuprofen 800 mg Route: PO; mg2 17:17 Follow up: Response: No adverse reaction; Marked relief of symptoms mg2 Outcome: 17:04 Discharge ordered by . kdr 17:17 Discharged to home ambulatory. mg2 17:17 Condition: stable 17:17 Discharge instructions given to patient, Instructed on discharge instructions, follow up and referral plans. medication usage, Demonstrated understanding of instructions, follow-up care, medications, Prescriptions given X 1. 17:17 Patient left the ED. mg2 Signatures: Dispatcher [employer] Annie Stoner, RN RN Mono Turcios MD MD [facility] Josselyn Franco 2 Christiano Miller RN RN mg2 Corrections: (The following items were deleted from the chart) 12:11 12:09 Pulse 83bpm; Resp 18bpm; Pulse Ox 100%; Temp 98.4F; 106.14 kg; Height 5 ft. 3 sv in.; BMI: 41.4; Pain 8/10; sv 16:43 16:34 Pain: mg2 mg2
--- NOTE | 2018-07-28 17:05 | EDPHYS ---
Physician Documentation [facility] Name: Tatyana Becerril Age: 32 yrs Sex: Female : 1985 Arrival Date: 07/28/2018 Time: 12:05 Bed 27 Private MD: Randy Marti ED Physician Mono Turcios HPI: 07/28 16:18 This 32 yrs old Black Female presents to ER via Ambulatory with complaints of Back Pain kdr - UPPER. 16:18 The patient presents with pain that is acute, with no known mechanism of injury. The kdr symptoms are located in the left subscapular area. Onset: The symptoms/episode began/occurred suddenly, this morning. The pain does not radiate. Associated signs and symptoms: The patient has no apparent associated signs or symptoms. The problem was sustained without known cause. Modifying factors: The patient symptoms are alleviated by remaining still, the patient symptoms are aggravated by any movement, bending, coughing, movement, Deep breathing, twisting of torso. Severity of symptoms: At their worst the symptoms were very mild, in the emergency department the symptoms are unchanged. The patient has not experienced similar symptoms in the past. The patient has not recently seen a physician. 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 - Social history:: Smoking status: Patient/guardian denies using tobacco. - Ebola Screening: : No symptoms or risks identified at this time. ROS: 16:18 Constitutional: Negative for fever, chills, and weight loss, Eyes: Negative for injury, kdr pain, redness, and discharge, ENT: Negative for injury, pain, and discharge, Neck: Negative for injury, pain, and swelling, Cardiovascular: Negative for chest pain, palpitations, and edema, Respiratory: Negative for shortness of breath, cough, wheezing, and pleuritic chest pain, Abdomen/GI: Negative for abdominal pain, nausea, vomiting, diarrhea, and constipation, : Negative for injury, bleeding, discharge, and swelling, MS/Extremity: Negative for injury and deformity, Skin: Negative for injury, rash, and discoloration, Neuro: Negative for headache, weakness, numbness, tingling, and seizure activity. Psych: Negative for depression, anxiety, suicide ideation, homicidal ideation, and hallucinations, Allergy/Immunology: Negative for hives, rash, and allergies, Endocrine: Negative for neck swelling, polydipsia, polyuria, polyphagia, and marked weight changes, Hematologic/Lymphatic: Negative for swollen nodes, abnormal bleeding, and unusual bruising. 16:18 Back: Positive for pain with movement, Negative for decreased range of motion, pain at rest, radiated pain. Exam: 16:18 Constitutional: This is a well developed, well nourished patient who is awake, alert, kdr and in no acute distress. Head/Face: Normocephalic, atraumatic. Eyes: Pupils equal round and reactive to light, extra-ocular motions intact. Lids and lashes normal. Conjunctiva and sclera are non-icteric and not injected. Cornea within normal limits. Periorbital areas with no swelling, redness, or edema. Neck: Trachea midline, no thyromegaly or masses palpated, and no cervical lymphadenopathy. Supple, full range of motion without nuchal rigidity, or vertebral point tenderness. No Meningismus. Chest/axilla: Normal chest wall appearance and motion. Nontender with no deformity. No lesions are appreciated. Cardiovascular: Regular rate and rhythm with a normal S1 and S2. No gallops, murmurs, or rubs. Normal PMI, no JVD. No pulse deficits. Respiratory: Lungs have equal breath sounds bilaterally, clear to auscultation and percussion. No rales, rhonchi or wheezes noted. No increased work of breathing, no retractions or nasal flaring. Abdomen/GI: Soft, non-tender, with normal bowel sounds. No distension or tympany. No guarding or rebound. No evidence of tenderness throughout. Skin: Warm, dry with normal turgor. Normal color with no rashes, no lesions, and no evidence of cellulitis. MS/ Extremity: Pulses equal, no cyanosis. Neurovascular intact. Full, normal range of motion. Neuro: Awake and alert, GCS 15, oriented to person, place, time, and situation. Cranial nerves II-XII grossly intact. Motor strength 5/5 in all extremities. Sensory grossly intact. Cerebellar exam normal. Normal gait. Psych: Awake, alert, with orientation to person, place and time. Behavior, mood, and affect are within normal limits. 16:18 Back: pain, that is mild, of the left subscapular area, ROM is painful, with all movement, normal spinal alignment noted, CVA tenderness, that is mild. Vital Signs: 12:09 BP 128 / 89; Pulse 83; Resp 18; Temp 98.4; Pulse Ox 100% ; Weight 106.14 kg; Height 5 sv ft. 3 in. (160.02 cm); Pain 8/10; 16:44 BP 130 / 86; Pulse 74; Resp 18; Pulse Ox 100% on R/A; Pain 4/10; mg2 12:09 Body Mass Index 41.45 (106.14 kg, 160.02 cm) sv MDM: 16:18 Data reviewed: vital signs, nurses notes, lab test result(s), EKG, radiologic studies. kdr Counseling: I had a detailed discussion with the patient and/or guardian regarding: the historical points, exam findings, and any diagnostic results supporting the discharge/admit diagnosis, lab results, radiology results, the need for outpatient follow up. 17:04 Patient medically screened. kdr 07/28 16:45 Order name: Urine Dipstick--Ancillary (enter results) eb 07/28 16:45 Order name: Urine --Ancillary (enter results) eb 07/28 12:12 Order name: Chest Pa And Lat (2 Views) XRAY; Complete Time: 14:31 sv 07/28 16:18 Order name: Urine Dipstick-Ancillary (obtain specimen); Complete Time: 16:34 kdr Administered Medications: 16:34 Drug: Ibuprofen 800 mg Route: PO; mg2 17:17 Follow up: Response: No adverse reaction; Marked relief of symptoms mg2 Disposition: 07/28/18 17:04 Discharged to Home. Impression: Chest pain on breathing, Chest pain, unspecified. - Condition is Stable. - Discharge Instructions: Costochondritis, [id number], Chest Wall Pain, [id number]. - Prescriptions for Ibuprofen 800 mg Oral Tablet - take 1 tablet by ORAL route every 8 hours As needed take with food; 30 tablet. - Medication Reconciliation Form, Thank You Letter form. - Follow up: Randy Marti; When: 2 - 3 days; Reason: If symptoms return, Further diagnostic work-up, Recheck today's complaints, Continuance of care, Re-evaluation by your physician. - Problem is new. - Symptoms have improved. Signatures: Dispatcher [employer] EDAnnie Koehler, RN RN Mono Turcios MD MD kdr Gardose, Michele RN RN mg2 Corrections: (The following items were deleted from the chart) 17:17 17:04 07/28/2018 17:04 Discharged to Home. Impression: Chest pain on breathing; Chest mg2 pain, unspecified. Condition is Stable. Forms are Medication Reconciliation Form, Thank You Letter, Antibiotic Education, Prescription Opioid Use. Follow up: Randy Marti; When: 2 - 3 days; Reason: If symptoms return, Further diagnostic work-up, Recheck today's complaints, Continuance of care, Re-evaluation by your physician. Problem is new. Symptoms have improved. kdr
[2018-07-28 17:27] VITALS: TEMP 98.4; O2SAT 100
[2018-07-28 17:32] VITALS: BP 130/86
== END 2018-07-28 17:17 | disposition home or self-care (01) ==
LOC: ER 12:01
DX: R07.9 Chest pain, unspecified (principal)
CPT/HCPCS: 71046; 81003; 81025; 99283

== ENCOUNTER 2018-10-11 14:08 | Emergency (ER) | payer BC ==
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
[2018-10-11 18:41] LABS: Urine Blood NEGATIVE (NEG); Urine Glucose NEGATIVE (NEG); Urine Protein NEGATIVE (NEG)
== END 2018-10-11 16:02 | disposition home or self-care (01) ==
LOC: ER 14:08
DX: S33.5XXA Sprain of ligaments of lumbar spine, initial encounter (principal); V43.52XA Car driver injured in collision with other type car in traffic accident, initial encounter; Y93.9 Activity, unspecified; Y92.410 Unspecified street and highway as the place of occurrence of the external cause
CPT/HCPCS: 72100; 81003; 81025; 99284

== ENCOUNTER 2018-11-05 07:52 | Emergency (ER) | payer BC ==
[2018-11-05] MEDS ORDERED: DEXAMETHASONE 10 MG/ML VIAL ONE (09:16)
[2018-11-05] MEDS ORDERED: IBUPROFEN 400 MG TAB ONE (09:16)
[2018-11-05 09:28] LABS: Urine Blood NEGATIVE (NEG); Urine Glucose NEGATIVE (NEG); Urine Protein NEGATIVE (NEG); Urine Specific Gravity >1.030 (1.005-1.030)
--- NOTE | 2018-11-05 10:02 | ER ---
Nurse's Notes [facility] Name: Tatyana Becerril Age: 33 yrs Sex: Female : 1985 Arrival Date: 11/05/2018 Time: 07:55 Bed 14 Private MD: Diagnosis: Acute pharyngitis Presentation: 11/05 07:59 Presenting complaint: Patient states: C/o sore throat pain 10/10, hurts to swallow. rb1 Transition of care: patient was not received from another setting of care. Onset of symptoms was November 04, 2018. Risk Assessment: Do you want to hurt yourself or someone else? Patient reports no desire to harm self or others. Initial Sepsis Screen: Does the patient meet any 2 criteria? No. Patient's initial sepsis screen is negative. Does the patient have a suspected source of infection? No. Patient's initial sepsis screen is negative. Care prior to arrival: None. 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 - Social history:: Smoking status: Patient/guardian denies using tobacco. - Ebola Screening: : Patient negative for fever greater than or equal to 101.5 degrees Fahrenheit, and additional compatible Ebola Virus Disease symptoms. Screenin:59 Abuse screen: Denies threats or abuse. Nutritional screening: No deficits noted. rb1 Tuberculosis screening: No symptoms or risk factors identified. Fall Risk None identified. Assessment: 07:59 General: Appears uncomfortable, Behavior is calm, cooperative. General: Denies fever. rb1 Pain: Complains of pain in throat Pain currently is 10 out of 10 on a pain scale. Pain began 1 day ago. Neuro: Level of Consciousness is awake, alert, obeys commands, Oriented to person, place, time, situation. Cardiovascular: Capillary refill < 3 seconds is brisk in bilateral fingers. Respiratory: Reports cough that is productive, green sputum Airway is patent Respiratory effort is even, unlabored, Respiratory pattern is regular, symmetrical, Breath sounds are clear bilaterally. GI: No signs and/or symptoms were reported involving the gastrointestinal system. : No signs and/or symptoms were reported regarding the genitourinary system. EENT: Throat is reddened. Derm: Skin is dry, Skin is normal, Skin temperature is warm. 08:55 Reassessment: Patient appears in no apparent distress at this time. No changes from rb1 previously documented assessment. 09:53 Reassessment: Patient appears in no apparent distress at this time. Patient and/or rb1 family updated on plan of care and expected duration. Pain level reassessed. Patient is alert, oriented x 3, equal unlabored respirations, skin warm/dry/pink. Vital Signs: 07:59 BP 142 / 92; Pulse 83; Resp 17; Temp 98.7(O); Pulse Ox 99% on R/A; Weight 108.86 kg rb1 (R); Height 5 ft. 3 in. (160.02 cm) (R); Pain 10/10; 08:55 BP 138 / 89; Pulse 80; Resp 17; Temp 98.5(O); Pulse Ox 100% on R/A; Pain 9/10; rb1 09:53 BP 141 / 91; Pulse 85; Resp 16; Temp 98.4(O); Pulse Ox 100% on R/A; Pain 8/10; rb1 07:59 Body Mass Index 42.51 (108.86 kg, 160.02 cm) rb1 ED Course: 07:55 Patient arrived in ED. tw3 07:59 Patient has correct armband on for positive identification. Bed in low position. Call rb1 light in reach. Side rails up X 1. Pulse ox on. NIBP on. 07:59 Arm band placed on left wrist. rb1 08:00 Laureano Porter NP is PHCP. pm1 08:00 Milind Mendoza MD is Attending Physician. pm1 08:06 Kanwal Rossi, LETICIA is Primary Nurse. rb1 08:08 Triage completed. rb1 10:13 No provider procedures requiring assistance completed. Patient did not have IV access rb1 during this emergency room visit. Administered Medications: 09:05 Drug: Decadron 10 mg Route: IM; Site: left deltoid; rb1 09:20 Follow up: Response: No adverse reaction rb1 09:05 Drug: Ibuprofen 800 mg Route: PO; rb1 09:53 Follow up: Response: No adverse reaction; Pain is decreased rb1 Outcome: 10:01 Discharge ordered by . pm1 10:13 Patient left the ED. rb1 10: Discharged to home ambulatory. rb1 10: Condition: stable 10:13 Discharge instructions given to patient, Instructed on discharge instructions, follow up and referral plans. Demonstrated understanding of instructions, follow-up care, Prescriptions given X none Signatures: Kanwal Rossi RN RN rb1 Laureano Porter NP BALLET PROFESSOR pm1 Vianey Arango tw3
--- NOTE | 2018-11-05 10:02 | EDPHYS ---
Physician Documentation [facility] Name: Tatyana Becerril Age: 33 yrs Sex: Female : 1985 Arrival Date: 11/05/2018 Time: 07:55 Bed 14 Private MD: ED Physician Milind Mendoza HPI: 11/05 08:45 This 33 yrs old Black Female presents to ER via Ambulatory with complaints of Sore pm1 Throat. 08:45 The patient presents with sore throat. The patient describes throat pain as raw, pm1 scratchy. Onset: The symptoms/episode began/occurred yesterday. Severity of symptoms: in the emergency department the symptoms are actually worse. Modifying factors: The symptoms are alleviated by nothing, the symptoms are aggravated by swallowing, Patient's oral intake status: good. Associated signs and symptoms: Pertinent positives: cough, flu-like symptoms, Pertinent negatives fever. The patient has not recently seen a physician. 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 - Social history:: Smoking status: Patient/guardian denies using tobacco. - Ebola Screening: : Patient negative for fever greater than or equal to 101.5 degrees Fahrenheit, and additional compatible Ebola Virus Disease symptoms. ROS: 08:45 Constitutional: Negative for fever, chills, and weight loss, Eyes: Negative for injury, pm1 pain, redness, and discharge. 08:45 Neck: Negative for injury, pain, and swelling, Cardiovascular: Negative for chest pain, palpitations, and edema. 08:45 Abdomen/GI: Negative for abdominal pain, nausea, vomiting, diarrhea, and constipation, Back: Negative for injury and pain, : Negative for injury, bleeding, discharge, and swelling, MS/Extremity: Negative for injury and deformity, Skin: Negative for injury, rash, and discoloration, Neuro: Negative for headache, weakness, numbness, tingling, and seizure. 08:45 ENT: Positive for sore throat, Negative for difficulty swallowing, difficulty handling secretions, hoarseness. 08:45 Respiratory: Positive for cough, Negative for shortness of breath, sputum production, wheezing. Exam: 08:45 Constitutional: This is a well developed, well nourished patient who is awake, alert, pm1 and in no acute distress. Head/Face: Normocephalic, atraumatic. Eyes: Pupils equal round and reactive to light, extra-ocular motions intact. Lids and lashes normal. Conjunctiva and sclera are non-icteric and not injected. Cornea within normal limits. Periorbital areas with no swelling, redness, or edema. 08:45 Neck: Trachea midline, no thyromegaly or masses palpated, and no cervical lymphadenopathy. Supple, full range of motion without nuchal rigidity, or vertebral point tenderness. No Meningismus. Chest/axilla: Normal chest wall appearance and motion. Nontender with no deformity. No lesions are appreciated. Cardiovascular: Regular rate and rhythm with a normal S1 and S2. No gallops, murmurs, or rubs. Normal PMI, no JVD. No pulse deficits. Respiratory: Lungs have equal breath sounds bilaterally, clear to auscultation and percussion. No rales, rhonchi or wheezes noted. No increased work of breathing, no retractions or nasal flaring. Abdomen/GI: Soft, non-tender, with normal bowel sounds. No distension or tympany. No guarding or rebound. No evidence of tenderness throughout. Back: No spinal tenderness. No costovertebral tenderness. Full range of motion. Skin: Warm, dry with normal turgor. Normal color with no rashes, no lesions, and no evidence of cellulitis. MS/ Extremity: Pulses equal, no cyanosis. Neurovascular intact. Full, normal range of motion. 08:45 ENT: External ear(s): are unremarkable, Ear canal(s): are normal, TM's: are normal, Nose: is normal, Mouth: is normal, Posterior pharynx: Tonsils: bilaterally enlarged, with erythema, no exudate, no ulcerations, peritonsillar mass, is not appreciated, pooling of secretions, is not appreciated. 08:45 Neuro: Orientation: is normal, Motor: is normal, moves all fours. Vital Signs: 07:59 BP 142 / 92; Pulse 83; Resp 17; Temp 98.7(O); Pulse Ox 99% on R/A; Weight 108.86 kg rb1 (R); Height 5 ft. 3 in. (160.02 cm) (R); Pain 10/10; 08:55 BP 138 / 89; Pulse 80; Resp 17; Temp 98.5(O); Pulse Ox 100% on R/A; Pain 9/10; rb1 09:53 BP 141 / 91; Pulse 85; Resp 16; Temp 98.4(O); Pulse Ox 100% on R/A; Pain 8/10; rb1 07:59 Body Mass Index 42.51 (108.86 kg, 160.02 cm) rb1 MDM: 08:02 Patient medically screened. pm1 10:01 Data reviewed: vital signs. Data interpreted: Pulse oximetry: on room air is 99 %. pm1 Interpretation: normal. Counseling: I had a detailed discussion with the patient and/or guardian regarding: the historical points, exam findings, and any diagnostic results supporting the discharge/admit diagnosis, lab results, the need for outpatient follow up, to return to the emergency department if symptoms worsen or persist or if there are any questions or concerns that arise at home. 11/05 08:13 Order name: Strep; Complete Time: 09:33 rb1 11/05 08:51 Order name: Urine Dipstick--Ancillary (enter results); Complete Time: 09:33 11/05 08:51 Order name: Urine --Ancillary (enter results); Complete Time: 09:33 11/05 08:59 Order name: Flu; Complete Time: 09:52 pm1 11/05 09:15 Order name: Throat Culture [facility] 11/05 08:13 Order name: Urine Dipstick-Ancillary (obtain specimen); Complete Time: 08:41 rb1 11/05 08:13 Order name: Urine Test (obtain specimen); Complete Time: 08:41 rb1 Administered Medications: 09:05 Drug: Decadron 10 mg Route: IM; Site: left deltoid; rb1 09:20 Follow up: Response: No adverse reaction rb1 09:05 Drug: Ibuprofen 800 mg Route: PO; rb1 09:53 Follow up: Response: No adverse reaction; Pain is decreased rb1 Disposition: 11/05/18 10:01 Discharged to Home. Impression: Acute pharyngitis. - Condition is Stable. - Discharge Instructions: Pharyngitis. - Medication Reconciliation Form, Thank You Letter, Antibiotic Education, Prescription Opioid Use form. - Follow up: Emergency Department; When: As needed; Reason: Worsening of condition. Follow up: Private Physician; When: 2 - 3 days; Reason: Recheck today's complaints, Continuance of care, Re-evaluation by your physician. - Problem is new. - Symptoms have improved. Addendum: 11/09/2018 20:34 Co-signature as Attending Physician, Milind Mendoza MD. g s Signatures: Dispatcher [employer] EDMS Kanwal Rossi, RN RN rb1 Laureano Porter, COMPUTER HARDWARE ENGINEER COMPUTER HARDWARE ENGINEER pm1 Milind Mendoza MD MD Corrections: (The following items were deleted from the chart) 11/05 10:13 10:01 11/05/2018 10:01 Discharged to Home. Impression: Acute pharyngitis. Condition is rb1 Stable. Forms are Medication Reconciliation Form, Thank You Letter, Antibiotic Education, Prescription Opioid Use. Follow up: Emergency Department; When: As needed; Reason: Worsening of condition. Follow up: Private Physician; When: 2 - 3 days; Reason: Recheck today's complaints, Continuance of care, Re-evaluation by your physician. Problem is new. Symptoms have improved. pm1
== END 2018-11-05 10:13 | disposition home or self-care (01) ==
LOC: ER 07:52
DX: J02.9 Acute pharyngitis, unspecified (principal)
CPT/HCPCS: 81003; 81025; 87070; 87081; 87804; 96372; 99283; J1100

== ENCOUNTER 2019-06-18 10:37 | Emergency (ER) | payer BC ==
--- NOTE | 2019-06-18 12:36 | RAD REPORT ---
EXAM DESCRIPTION: CT - Head C Spine Mpr Wo Con - 06/18/2019 12:21 pm CLINICAL HISTORY: Right arm numbness COMPARISON: None. TECHNIQUE: Computed axial tomography of the head and cervical spine was obtained. Sagittal and coronal reconstruction was performed. All CT scans are performed using dose optimization technique as appropriate and may include automated exposure control or mA/KV adjustment according to patient size. FINDINGS: An intracranial bleed is not seen. The ventricles are normal in caliber. An extra-axial fl uid collection is not noted.Fluid within the visualized sinuses and mastoids is not seen A cervical fracture is not visualized. No dislocation is noted. Significant central and foraminal kevin nosis not seen. Prominence of the tonsils and adenoids IMPRESSION: No acute intracranial abnormality is seen. A cervical fracture is not visualized. A large disc herniation not seen. If the patient continues to have symptoms to suggest intracranial /spinal cord/spinal canal pathology then MRI would be recommended Prominence of the tonsils and adenoids
--- NOTE | 2019-06-18 12:44 | RAD REPORT ---
EXAM DESCRIPTION: Lalo Single View06/18/2019 12:30 pm CLINICAL HISTORY: Chest pain COMPARISON: July 2018 FINDINGS: The lungs appear clear of acute infiltrate. The heart is normal size IMPRESSION: No acute abnormalities displayed
[2019-06-18 13:08] LABS: Absolute Lymphocytes (CBC) 1.6 K/uL (0.7-4.9); Basophils % 0.4 % (0-1.3); Hematocrit 36.5 % (36.0-45.0); MPV 8.2 fL (7.6-11.3); RBC Red Blood Cell Count 4.88 M/uL (3.86-4.86)
[2019-06-18 13:10] LABS: Protime INR 0.96
[2019-06-18 13:15] LABS: ALT/SGPT 45 U/L (12-78); AST/SGOT 49 U/L (15-37); Albumin 3.6 g/dL (3.4-5.0); Alkaline Phosphatase 127 U/L (45-117); BUN Blood Urea Nitrogen 11 mg/dL (7-18); Bicarbonate 29 mmol/L (21-32); Bilirubin Direct < 0.1 mg/dL (0-0.2); Bilirubin Total 0.2 mg/dL (0.2-1.0); Glucose Level 105 mg/dL (74-106); Magnesium 2.1 mg/dL (1.8-2.4); NT PRO-BNP 19 pg/mL (<125); Potassium 3.8 mmol/L (3.5-5.1); Protein, Total 8.1 g/dL (6.4-8.2); Sodium Level 140 mmol/L (136-145); Troponin (Emerg Dept Use Only) < 0.02 ng/mL (0.0-0.045)
[2019-06-18] MEDS ORDERED: THIAMINE 200 MG/2 ML INJ ONE (13:21)
[2019-06-18] MEDS ORDERED: FOLIC ACID 5 MG/ML VIAL ONE (13:22)
[2019-06-18] MEDS ORDERED: NA CHLORIDE 0.9% 1,000 ML ONE (13:22)
--- NOTE | 2019-06-18 14:17 | ER ---
Nurse's Notes [facility] Name: Tatyana Becerril Age: 33 yrs Sex: Female : 1985 Arrival Date: 06/18/2019 Time: 10:41 Bed 6 Private MD: To Siddiqui Diagnosis: Radiculopathy, cervical region Presentation: 06/18 10:51 Presenting complaint: Patient states: Right arm numbness and right hand numbness that sg began yesterday at 1200 pm reports is intermittent, worsening with activity, denies N/V/D/Fever, reports no injury or trauma, numbness that is intermittent to right arm and right hand only. Transition of care: patient was not received from another setting of care. Onset of symptoms was June 18, 2019. Risk Assessment: Do you want to hurt yourself or someone else? Patient reports no desire to harm self or others. Initial Sepsis Screen: Does the patient meet any 2 criteria? No. Patient's initial sepsis screen is negative. Does the patient have a suspected source of infection? No. Patient's initial sepsis screen is negative. Care prior to arrival: None. 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 - Social history:: Smoking status: Patient/guardian denies using tobacco. - Ebola Screening: : Patient negative for fever greater than or equal to 101.5 degrees Fahrenheit, and additional compatible Ebola Virus Disease symptoms Patient denies exposure to infectious person Patient denies travel to an Ebola-affected area in the 21 days before illness onset No symptoms or risks identified at this time. - Family history:: not pertinent. Screenin:21 Abuse screen: Denies threats or abuse. Denies injuries from another. Nutritional ch screening: No deficits noted. Tuberculosis screening: No symptoms or risk factors identified. Fall Risk None identified. Assessment: 11:21 Reassessment: Patient appears in no apparent distress at this time. Patient and/or ch family updated on plan of care and expected duration. Pain level reassessed. Patient is alert, oriented x 3, equal unlabored respirations, skin warm/dry/pink. General: Appears in no apparent distress. uncomfortable, Behavior is calm, cooperative, appropriate for age. Pain: Complains of pain in right scapular area, right arm, right posterior aspect of neck and right lateral aspect of neck Pain currently is 8 out of 10 on a pain scale. Pain began gradually. Neuro: No deficits noted. Respiratory: No deficits noted. Airway is patent Respiratory effort is even, unlabored. GI: No signs and/or symptoms were reported involving the gastrointestinal system. Abdomen is round non-distended, Bowel sounds present X 4 quads. Derm: Skin is pink, warm \T\ dry. 12:59 Reassessment: Patient appears in no apparent distress at this time. No changes from previously documented assessment. Patient and/or family updated on plan of care and expected duration. Pain level reassessed. Patient is alert, oriented x 3, equal unlabored respirations, skin warm/dry/pink. 14:07 Reassessment: Patient appears in no apparent distress at this time. Patient and/or family updated on plan of care and expected duration. Pain level reassessed. Patient is alert, oriented x 3, equal unlabored respirations, skin warm/dry/pink. pt states her pain is a 2 now. Patient states feeling better. Patient states symptoms have improved. Vital Signs: 10:49 Pulse 76; Resp 18; Temp 97.4; Pulse Ox 100% on R/A; Weight 110.22 kg; Height 5 ft. 3 sg in. (160.02 cm); Pain 4/10; 10:49 BP 166 / 91; sg 11:21 BP 139 / 82; Pulse 68; Resp 14; Temp 98.2; Pulse Ox 100% on R/A; Pain 6/10; ch 12:59 BP 140 / 78; Pulse 69; Resp 14; Temp 98; Pulse Ox 99% on R/A; ch 14:07 BP 131 / 79; Pulse 80; Resp 14; Temp 98.8; Pulse Ox 100% on R/A; Pain 2/10; ch 10:49 Body Mass Index 43.05 (110.22 kg, 160.02 cm) ED Course: 10:41 Patient arrived in ED. mr 10:41 To Siddiqui MD is Private Physician. mr 10:52 Triage completed. sg 10:53 Arm band placed on. sg 11:17 Alan Moss MD is Attending Physician. [facility] 11:18 Lola López, RN is Primary Nurse. ch 11:21 Patient has correct armband on for positive identification. Bed in low position. Call light in reach. Side rails up X 1. Pulse ox on. NIBP on. 12:21 X-ray completed. Portable x-ray completed in exam room. Patient tolerated procedure mh1 well. 12:22 CT Head C Spine In Process Unspecified. EDMS 12:30 XRAY Chest (1 view) In Process Unspecified. EDMS 12:40 Inserted saline lock: 20 gauge in right antecubital area, using aseptic technique. Blood collected. Missed attempt(s): 18 gauge in left antecubital area. Bleeding controlled, band aid applied, catheter tip intact. 13:00 No apparent distress. Resting quietly. Appears to be sleeping. ch 14:07 Door closed. Noise minimized. Warm blanket given. Pillow given. ch 14:07 No provider procedures requiring assistance completed. 14:16 To Siddiqui MD is Referral Physician. ulysses 14:16 Jacinto Wiley MD is Referral Physician. [facility] 14:20 IV discontinued, intact, bleeding controlled, No redness/swelling at site. Pressure dressing applied. Administered Medications: 13:23 Drug: Thiamine 100 mg Route: IV; Rate: per protocol; Site: right antecubital; hb 13:23 Drug: foLIC Acid 1 mg Route: IVPB; Site: right antecubital; hb 13:24 Drug: NS 0.9% 1000 ml Route: IV; Rate: 1 bolus; Site: right antecubital; hb 14:18 Drug: Aspirin 81 mg Route: PO; hb 19:23 Follow up: Response: No adverse reaction Outcome: 14:16 Discharge ordered by . [facility] 14:20 Discharged to home ambulatory. 14:20 Condition: improved 14:20 Discharge instructions given to patient, Instructed on discharge instructions, follow up and referral plans. medication usage, Demonstrated understanding of instructions, follow-up care, medications. 14:31 Patient left the ED. Signatures: Dispatcher [employer] EDWY Lola López RN RN David Bell RN RN sg Anderson, Corey, MD MD cha Luque, Florencia mr Laron, Lanny [facility] Susanne Robles, LETICIA KELLY hb
--- NOTE | 2019-06-18 14:18 | EDPHYS ---
Physician Documentation [facility] Name: Tatyana Becerril Age: 33 yrs Sex: Female : 1985 Arrival Date: 06/18/2019 Time: 10:41 Bed 6 Private MD: To Siddiqui ED Physician Alan Moss HPI: 06/18 11:48 This 33 yrs old Black Female presents to ER via Ambulatory with complaints of Numbness ulysses Of Arm, Numbness Of Hand. 11:48 The patient or guardian complains of arm is numb since 4pm yesterday. The complaints ulysses affect the right bicep, dorsal aspect of right forearm, right hand, right tricep and palmar aspect of right forearm. Context: The problem was sustained at an unknown location. Onset: The symptoms/episode began/occurred yesterday. Treatment prior to arrival includes: no previous treatment. Modifying factors: The symptoms are alleviated by nothing. the symptoms are aggravated by nothing. Associated signs and symptoms: The patient has no apparent associated signs or symptoms. Severity of symptoms: At their worst the symptoms were mild, in the emergency department the symptoms are unchanged. The patient has not experienced similar symptoms in the past. 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 - Social history:: Smoking status: Patient/guardian denies using tobacco. - Ebola Screening: : Patient negative for fever greater than or equal to 101.5 degrees Fahrenheit, and additional compatible Ebola Virus Disease symptoms Patient denies exposure to infectious person Patient denies travel to an Ebola-affected area in the 21 days before illness onset No symptoms or risks identified at this time. - Family history:: not pertinent. ROS: 11:48 Constitutional: Negative for fever, chills, and weight loss, Eyes: Negative for injury, ulysses pain, redness, and discharge, ENT: Negative for injury, pain, and discharge, Neck: Negative for injury, pain, and swelling, Cardiovascular: Negative for chest pain, palpitations, and edema, Respiratory: Negative for shortness of breath, cough, wheezing, and pleuritic chest pain, Abdomen/GI: Negative for abdominal pain, nausea, vomiting, diarrhea, and constipation, Back: Negative for injury and pain, : Negative for injury, bleeding, discharge, and swelling, Skin: Negative for injury, rash, and discoloration, Neuro: Negative for headache, weakness, numbness, tingling, and seizure, Psych: Negative for depression, anxiety, suicide ideation, homicidal ideation, and hallucinations, Allergy/Immunology: Negative for hives, rash, and allergies, Endocrine: Negative for neck swelling, polydipsia, polyuria, polyphagia, and marked weight changes, Hematologic/Lymphatic: Negative for swollen nodes, abnormal bleeding, and unusual bruising. 11:48 MS/extremity: Positive for paresthesias, of the right arm. Exam: 11:48 Constitutional: This is a well developed, well nourished patient who is awake, alert, ulysses and in no acute distress. Head/Face: Normocephalic, atraumatic. Eyes: Pupils equal round and reactive to light, extra-ocular motions intact. Lids and lashes normal. Conjunctiva and sclera are non-icteric and not injected. Cornea within normal limits. Periorbital areas with no swelling, redness, or edema. ENT: Nares patent. No nasal discharge, no septal abnormalities noted. Tympanic membranes are normal and external auditory canals are clear. Oropharynx with no redness, swelling, or masses, exudates, or evidence of obstruction, uvula midline. Mucous membranes moist. Neck: Trachea midline, no thyromegaly or masses palpated, and no cervical lymphadenopathy. Supple, full range of motion without nuchal rigidity, or vertebral point tenderness. No Meningismus. Chest/axilla: Normal chest wall appearance and motion. Nontender with no deformity. No lesions are appreciated. Cardiovascular: Regular rate and rhythm with a normal S1 and S2. No gallops, murmurs, or rubs. Normal PMI, no JVD. No pulse deficits. Respiratory: Lungs have equal breath sounds bilaterally, clear to auscultation and percussion. No rales, rhonchi or wheezes noted. No increased work of breathing, no retractions or nasal flaring. Abdomen/GI: Soft, non-tender, with normal bowel sounds. No distension or tympany. No guarding or rebound. No evidence of tenderness throughout. Back: No spinal tenderness. No costovertebral tenderness. Full range of motion. Skin: Warm, dry with normal turgor. Normal color with no rashes, no lesions, and no evidence of cellulitis. Neuro: Awake and alert, GCS 15, oriented to person, place, time, and situation. Cranial nerves II-XII grossly intact. Motor strength 5/5 in all extremities. Sensory grossly intact. Cerebellar exam normal. Normal gait. Psych: Awake, alert, with orientation to person, place and time. Behavior, mood, and affect are within normal limits. 11:48 Musculoskeletal/extremity: ROM: no acute changes, intact in all extremities, full active range of motion, full passive range of motion, Circulation is intact in all extremities. Pulses: Sensation intact. Compartment Syndrome exam of affected extremity: is normal. Joints: All joints appear normal with full range of motion. Weight bearing: able to fully bear weight, DVT Exam: No signs of deep vein thrombosis. no pain, no swelling, no tenderness, negative Homans' sign noted on exam, no appreciated bluish discoloration, no erythema, no increased warmth. Vital Signs: 10:49 Pulse 76; Resp 18; Temp 97.4; Pulse Ox 100% on R/A; Weight 110.22 kg; Height 5 ft. 3 sg in. (160.02 cm); Pain 4/10; 10:49 BP 166 / 91; sg 11:21 BP 139 / 82; Pulse 68; Resp 14; Temp 98.2; Pulse Ox 100% on R/A; Pain 6/10; ch 12:59 BP 140 / 78; Pulse 69; Resp 14; Temp 98; Pulse Ox 99% on R/A; ch 14:07 BP 131 / 79; Pulse 80; Resp 14; Temp 98.8; Pulse Ox 100% on R/A; Pain 2/10; ch 10:49 Body Mass Index 43.05 (110.22 kg, 160.02 cm) MDM: 11:17 Patient medically screened. [facility] 11:53 Data reviewed: vital signs, nurses notes, lab test result(s), EKG, radiologic studies. [facility] 06/18 11:47 Order name: Basic Metabolic Panel; Complete Time: 14:13 [facility] 06/18 11:47 Order name: CBC with Diff; Complete Time: 14:13 [facility] 06/18 11:47 Order name: LFT's; Complete Time: 14:13 [facility] 06/18 11:47 Order name: Magnesium; Complete Time: 14:13 [facility] 06/18 11:47 Order name: NT PRO-BNP; Complete Time: 14:13 [facility] 06/18 11:47 Order name: PT-INR; Complete Time: 14:13 [facility] 06/18 11:47 Order name: Troponin (emerg Dept Use Only); Complete Time: 14:13 [facility] 06/18 11:47 Order name: XRAY Chest (1 view); Complete Time: 13:10 [facility] 06/18 11:47 Order name: CT Head C Spine; Complete Time: 13:10 [facility] 06/18 13:59 Order name: Urine Dipstick--Ancillary (enter results) 06/18 13:59 Order name: Urine --Ancillary (enter results) 06/18 11:47 Order name: EKG; Complete Time: 11:48 [facility] 06/18 11:47 Order name: Cardiac monitoring; Complete Time: 12:18 [facility] 06/18 11:47 Order name: EKG - Nurse/Tech; Complete Time: 12:18 [facility] 06/18 11:47 Order name: IV Saline Lock; Complete Time: 12:59 [facility] 06/18 11:47 Order name: Labs collected and sent; Complete Time: 12:59 [facility] 06/18 11:47 Order name: O2 Per Protocol; Complete Time: 12:18 [facility] 06/18 11:47 Order name: O2 Sat Monitoring; Complete Time: 12:18 [facility] 06/18 11:47 Order name: Urine Dipstick-Ancillary (obtain specimen); Complete Time: 14:06 [facility] 06/18 11:47 Order name: Urine Test (obtain specimen); Complete Time: 14:06 [facility] Administered Medications: 13:23 Drug: Thiamine 100 mg Route: IV; Rate: per protocol; Site: right antecubital; hb 13:23 Drug: foLIC Acid 1 mg Route: IVPB; Site: right antecubital; hb 13:24 Drug: NS 0.9% 1000 ml Route: IV; Rate: 1 bolus; Site: right antecubital; hb 14:18 Drug: Aspirin 81 mg Route: PO; hb 19:23 Follow up: Response: No adverse reaction Disposition: 06/18/19 14:16 Discharged to Home. Impression: Radiculopathy, cervical region. - Condition is Stable. - Discharge Instructions: Cervical Radiculopathy, Aspirin and Your Heart, Cervical Radiculopathy, Aipi-[id number], Radicular Pain. - Prescriptions for Vitamin 27- 0.8 mg Oral Tablet - take 1 tablet by ORAL route once daily; 30 tablet. Medrol (Russ) 4 mg Oral Tablets, Dose Pack - take 1 tablet by ORAL route as directed - follow package instructions; 1 packet. - Medication Reconciliation Form, Thank You Letter, Antibiotic Education, Prescription Opioid Use, Work release form form. - Follow up: To Siddiqui; When: 2 - 3 days; Reason: Recheck today's complaints, Continuance of care, Re-evaluation by your physician. Follow up: Jacinto Wiley; When: 2 - 3 days; Reason: Recheck today's complaints, Continuance of care, Re-evaluation by your physician. - Problem is new. - Symptoms have improved. Signatures: Dispatcher [employer] EDMS Lola López RN RN David Bell RN RN Alan Moss MD MD cha Baxter, Heather, RN RN Corrections: (The following items were deleted from the chart) 14:31 14:16 06/18/2019 14:16 Discharged to Home. Impression: Radiculopathy, cervical region. ch Condition is Stable. Discharge Instructions: Cervical Radiculopathy, Cervical Radiculopathy, [id number], Radicular Pain. Prescriptions for Vitamin 27-0.8 mg Oral Tablet - take 1 tablet by ORAL route once daily; 30 tablet, Medrol (Russ) 4 mg Oral Tablets, Dose Pack - take 1 tablet by ORAL route as directed - follow package instructions; 1 packet. and Forms are Medication Reconciliation Form, Thank You Letter, Antibiotic Education, Prescription Opioid Use. Follow up: To Siddiqui; When: 2 - 3 days; Reason: Recheck today's complaints, Continuance of care, Re-evaluation by your physician. Follow up: Jacinto Wiley; When: 2 - 3 days; Reason: Recheck today's complaints, Continuance of care, Re-evaluation by your physician. Problem is new. Symptoms have improved. ulysses
[2019-06-18 14:44] VITALS: BP 131/79; TEMP 98.8; O2SAT 100
--- NOTE | 2019-06-18 15:35 | EKG ---
Test Date: 2019-06-18 Test Time: 11:59:09 Sample Mounter: JESS MEASUREMENT RESULTS: Intervals: Rate: 85 NE: 146 QRSD: 74 QT: 374 QTc: 445 [place]: P: 50 NE: 146 QRS: -2 T: 26 INTERPRETIVE STATEMENTS: Normal sinus rhythm normal ECG Compared to ECG 06/27/2018 11:26:09 no significant change from previous ECG Electronically Signed On 06-18-19 15:35:04 EXPLOSIVE TECHNICIAN by Jem Delcid
[2019-06-18 16:06] LABS: Urine Blood 1+ (NEG); Urine Glucose NEGATIVE (NEG); Urine Protein NEGATIVE (NEG); Urine Specific Gravity >1.030 (1.005-1.030); Urine pH 6.5 (5.0-7.0)
== END 2019-06-18 14:31 | disposition home or self-care (01) ==
LOC: ER 10:37
DX: M54.12 Radiculopathy, cervical region (principal)
CPT/HCPCS: 93005; 85025; 80048; 36415; 83735; 81025; 85610; 80076; 81003; 84484; 83880; 70450; 72125; 71045; 96375; 96374; 99284; J3411; J7030

== ENCOUNTER 2019-08-22 05:51 | Emergency (ER) | payer BC, SELFPAY ==
[2019-08-22] MEDS ORDERED: NA CHLORIDE 0.9% 1,000 ML ONE (06:39)
[2019-08-22] MEDS ORDERED: MECLIZINE HCL 12.5 MG TAB ONE (06:39)
[2019-08-22 07:23] LABS: ALT/SGPT 24 U/L (12-78); AST/SGOT 46 U/L (15-37); Albumin 3.3 g/dL (3.4-5.0); Alkaline Phosphatase 89 U/L (45-117); BUN Blood Urea Nitrogen 9 mg/dL (7-18); Bicarbonate 24 mmol/L (21-32); Bilirubin Direct < 0.1 mg/dL (0-0.2); Bilirubin Total 0.2 mg/dL (0.2-1.0); Glucose Level 101 mg/dL (74-106); Lipase 152 U/L (73-393); Potassium 3.7 mmol/L (3.5-5.1); Sodium Level 142 mmol/L (136-145)
[2019-08-22 07:29] LABS: Absolute Lymphocytes (CBC) 0.8 K/uL (0.7-4.9); Basophils % 0.2 % (0-1.3); Lymphocytes % 13.6 % (15.3-44.8); MPV 7.9 fL (7.6-11.3); RBC Red Blood Cell Count 4.43 M/uL (3.86-4.86)
[2019-08-22 11:37] LABS: Urine Blood TRACE (NEG); Urine Glucose NEGATIVE (NEG); Urine Protein NEGATIVE (NEG); Urine Specific Gravity 1.025 (1.005-1.030)
--- NOTE | 2019-08-22 11:42 | ER ---
Nurse's Notes [facility] Name: Tatyana Becerril Age: 34 yrs Sex: Female : 1985 Arrival Date: 08/22/2019 Time: 05:55 Bed 7 Private MD: Diagnosis: Dehydration;Dizziness and giddiness Presentation: 08/21 06:07 Chief complaint: Patient states: Complaint of dizziness and nausea that began 3 days lp1 ago; States drinking alcohol over weekend and unsure if that is why she is sick; Sinus congestion and pressure x 2 weeks, states dizziness after bending over; denies any fever. Coronavirus screen: The patient has NOT traveled to [place] in the past 14 days. The patient has NOT had contact with known and/or suspected case of Coronavirus. Ebola Screen: No symptoms or risks identified at this time. Initial Sepsis Screen: Does the patient meet any 2 criteria? No. Patient's initial sepsis screen is negative. Does the patient have a suspected source of infection? No. Patient's initial sepsis screen is negative. Risk Assessment: Do you want to hurt yourself or someone else? Patient reports no desire to harm self or others. 06:07 Method Of Arrival: Ambulatory lp1 06:07 Acuity: [place] 3 lp1 06:07 Onset of symptoms was August 22, 2019. 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 - Social history:: Smoking status: Patient denies any tobacco usage or history of. Screenin:10 Abuse screen: Denies threats or abuse. Denies injuries from another. Nutritional lp1 screening: No deficits noted. Tuberculosis screening: No symptoms or risk factors identified. Fall Risk None identified. Assessment: 06:20 General: Appears in no apparent distress. Behavior is calm, cooperative, appropriate lp1 for age. Pain: Denies pain. Neuro: Level of Consciousness is awake, alert, obeys commands, Oriented to person, place, time, situation, Reports dizziness, with fast movements headache. Cardiovascular: Patient's skin is warm and dry. Respiratory: Respiratory effort is even, unlabored. GI: Abdomen is non-distended. : No signs and/or symptoms were reported regarding the genitourinary system. EENT: Reports nasal congestion. Derm: Skin is intact, Skin is dry, Skin is normal. Musculoskeletal: No deficits noted. 07:32 Reassessment: Patient appears in no apparent distress at this time. Patient and/or ph family updated on plan of care and expected duration. Pain level reassessed. Patient is alert, oriented x 3, equal unlabored respirations, skin warm/dry/pink. Pt resting quietly w/ lights off in room, awaiting lab results, VSS. 08:45 Reassessment: Patient appears in no apparent distress at this time. Patient and/or ph family updated on plan of care and expected duration. Pain level reassessed. Patient is alert, oriented x 3, equal unlabored respirations, skin warm/dry/pink. 10:00 Reassessment: Patient appears in no apparent distress at this time. Patient and/or ph family updated on plan of care and expected duration. Pain level reassessed. Patient is alert, oriented x 3, equal unlabored respirations, skin warm/dry/pink. 11:35 Reassessment: Patient appears in no apparent distress at this time. Patient and/or ph family updated on plan of care and expected duration. Pain level reassessed. Patient is alert, oriented x 3, equal unlabored respirations, skin warm/dry/pink. Vital Signs: 06:09 BP 141 / 104; Pulse 97; Resp 18; Temp 98.2(O); Pulse Ox 100% on R/A; Weight 111.13 kg; lp1 Height 5 ft. 3 in. (160.02 cm); Pain 0/10; 06:21 BP 130 / 86 LA Supine (auto/lg); Pulse 86 MON; Pulse Ox 100% on R/A; ds4 06:24 BP 137 / 96 LA Sitting (auto/lg); Pulse 85 MON; Pulse Ox 100% on R/A; ds4 06:27 BP 141 / 84 LA Standing (auto/lg); Pulse 94 MON; Pulse Ox 100% on R/A; ds4 07:32 BP 141 / 84; Pulse 76; Resp 18; Pulse Ox 100% on R/A; ph 09:00 BP 136 / 78; Pulse 74; Resp 18; Pulse Ox 99% ; ph 10:30 BP 142 / 76; Pulse 74; Resp 18; Pulse Ox 98% on R/A; ph 12:00 BP 146 / 69; Pulse 72; Resp 18; Temp 97.9; Pulse Ox 100% on R/A; ph 06:09 Body Mass Index 43.40 (111.13 kg, 160.02 cm) lp1 ED Course: 05:55 Patient arrived in ED. ag3 05:59 Janett Buitrago FNP-C is [facility]. snw 05:59 Richardson Berger MD is Attending Physician. snw 06:07 Shruthi Cruz, RN is Primary Nurse. lp1 06:08 Triage completed. lp1 06:09 Arm band placed on. lp1 06:10 Patient has correct armband on for positive identification. Pulse ox on. NIBP on. lp1 06:30 Inserted saline lock: 22 gauge in left antecubital area, using aseptic technique. Blood ds4 collected. 12:41 No provider procedures requiring assistance completed. IV discontinued, intact, ss bleeding controlled, No redness/swelling at site. Pressure dressing applied. Administered Medications: 07:02 Drug: NS 0.9% 1000 ml Route: IV; Rate: 1000 ml; Site: left antecubital; lp1 09:00 Follow up: Response: No adverse reaction; IV Status: Completed infusion; IV Intake: ph 1000ml 07:02 Drug: Antivert 50 mg Route: PO; lp1 08:00 Follow up: Response: No adverse reaction ph Intake: 09:00 IV: 1000ml; Total: 1000ml. ph Outcome: 11:41 Discharge ordered by MD. snw 12:41 Discharged to home ambulatory. ss 12:41 Condition: good 12:41 Discharge instructions given to patient, Instructed on discharge instructions, follow up and referral plans. medication usage, Demonstrated understanding of instructions, follow-up care, medications, Prescriptions given X 1. 12:42 Patient left the ED. ss Signatures: Janett Buitrago FNP-C FNP-Kiya Garcia RN RN ss Shruthi Cruz, RN RN lp1 Gael Kearns ds4 Taina Monet RN RN Mariaa Cano ag3 Corrections: (The following items were deleted from the chart) 06:32 06:31 BP 141 / 84 Standing Auto L Arm Large; Pulse 94bpm; Monitor; Pulse Ox 100% RA; ds4ds4
--- NOTE | 2019-08-22 11:42 | EDPHYS ---
Physician Documentation [facility] Name: Tatyana Becerril Age: 34 yrs Sex: Female : 1985 Arrival Date: 08/22/2019 Time: 05:55 Bed 7 Private MD: ED Physician Richardson Berger HPI: 08/21 06:35 This 34 yrs old Black Female presents to ER via Ambulatory with complaints of Nausea, snw Dizziness. 06:35 The patient presents to the emergency department with nausea. Onset: The snw symptoms/episode began/occurred S/p drinking heavily on Tuesday.. Possible causes: hangover dehydration. The symptoms are aggravated by movement. Severity of symptoms: At their worst the symptoms were moderate in the emergency department the symptoms are unchanged. The patient has not experienced similar symptoms in the past. It is unknown whether or not the patient has recently seen a physician. denies trauma. 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 - Social history:: Smoking status: Patient denies any tobacco usage or history of. ROS: 06:34 Constitutional: Negative for fever, chills, and weight loss, Eyes: Negative for injury, snw pain, redness, and discharge, ENT: Negative for injury, pain, and discharge, Neck: Negative for injury, pain, and swelling, Cardiovascular: Negative for chest pain, palpitations, and edema, Respiratory: Negative for shortness of breath, cough, wheezing, and pleuritic chest pain, Back: Negative for injury and pain, : Negative for injury, bleeding, discharge, and swelling, MS/Extremity: Negative for injury and deformity, Skin: Negative for injury, rash, and discoloration. 06:34 Abdomen/GI: Positive for nausea. 06:34 Neuro: Positive for dizziness. Exam: 06:28 Head/Face: Normocephalic, atraumatic. Eyes: Pupils equal round and reactive to light, snw extra-ocular motions intact. Lids and lashes normal. Conjunctiva and sclera are non-icteric and not injected. Cornea within normal limits. Periorbital areas with no swelling, redness, or edema. 06:28 ENT: Nares patent. No nasal discharge, no septal abnormalities noted. Tympanic membranes are normal and external auditory canals are clear. Oropharynx with no redness, swelling, or masses, exudates, or evidence of obstruction, uvula midline. Mucous membranes moist. Neck: Trachea midline, no thyromegaly or masses palpated, and no cervical lymphadenopathy. Supple, full range of motion without nuchal rigidity, or vertebral point tenderness. No Meningismus. Chest/axilla: Normal chest wall appearance and motion. Nontender with no deformity. No lesions are appreciated. Cardiovascular: Regular rate and rhythm with a normal S1 and S2. No gallops, murmurs, or rubs. Normal PMI, no JVD. No pulse deficits. Respiratory: Lungs have equal breath sounds bilaterally, clear to auscultation and percussion. No rales, rhonchi or wheezes noted. No increased work of breathing, no retractions or nasal flaring. Back: No spinal tenderness. No costovertebral tenderness. Full range of motion. 06:28 Skin: Warm, dry with normal turgor. Normal color with no rashes, no lesions, and no evidence of cellulitis. MS/ Extremity: Pulses equal, no cyanosis. Neurovascular intact. Full, normal range of motion. Neuro: Awake and alert, GCS 15, oriented to person, place, time, and situation. Cranial nerves II-XII grossly intact. Motor strength 5/5 in all extremities. Sensory grossly intact. Cerebellar exam normal. Normal gait. Psych: Awake, alert, with orientation to person, place and time. Behavior, mood, and affect are within normal limits. 06:28 Constitutional: The patient appears alert, awake, uncomfortable. 06:28 Abdomen/GI: Inspection: abdomen appears normal, Bowel sounds: normal, Palpation: Vital Signs: 06:09 BP 141 / 104; Pulse 97; Resp 18; Temp 98.2(O); Pulse Ox 100% on R/A; Weight 111.13 kg; lp1 Height 5 ft. 3 in. (160.02 cm); Pain 0/10; 06:21 BP 130 / 86 LA Supine (auto/lg); Pulse 86 MON; Pulse Ox 100% on R/A; ds4 06:24 BP 137 / 96 LA Sitting (auto/lg); Pulse 85 MON; Pulse Ox 100% on R/A; ds4 06:27 BP 141 / 84 LA Standing (auto/lg); Pulse 94 MON; Pulse Ox 100% on R/A; ds4 07:32 BP 141 / 84; Pulse 76; Resp 18; Pulse Ox 100% on R/A; ph 09:00 BP 136 / 78; Pulse 74; Resp 18; Pulse Ox 99% ; ph 10:30 BP 142 / 76; Pulse 74; Resp 18; Pulse Ox 98% on R/A; ph 12:00 BP 146 / 69; Pulse 72; Resp 18; Temp 97.9; Pulse Ox 100% on R/A; ph 06:09 Body Mass Index 43.40 (111.13 kg, 160.02 cm) lp1 MDM: 05:59 Patient medically screened. snw 11:42 Data reviewed: vital signs, nurses notes. Data interpreted: Pulse oximetry: on room air snw is 100 %. Interpretation: normal. Counseling: I had a detailed discussion with the patient and/or guardian regarding: the historical points, exam findings, and any diagnostic results supporting the discharge/admit diagnosis, the presence of at least one elevated blood pressure reading (>120/80) during this emergency department visit, lab results, the need for outpatient follow up, to return to the emergency department if symptoms worsen or persist or if there are any questions or concerns that arise at home. Special discussion: I have referred the patient to see his PCP for further evaluation of high blood pressure. Based on the history and exam findings, there is no indication for further emergent testing or inpatient evaluation. I discussed with the patient/guardian the need to see the primary care provider for further evaluation of the symptoms. 08/21 06:01 Order name: Urine Culture snw 08/21 06:28 Order name: Lipase; Complete Time: 07:38 snw 08/21 06:28 Order name: Basic Metabolic Panel; Complete Time: 07:38 snw 08/21 06:28 Order name: CBC with Diff; Complete Time: 07:38 snw 08/21 06:28 Order name: Creatinine for Radiology; Complete Time: 07:38 snw 08/21 06:01 Order name: Urine Test (obtain specimen); Complete Time: 11:11 snw 08/21 06:01 Order name: Urine Dipstick-Ancillary (obtain specimen); Complete Time: 11:11 snw 08/21 06:01 Order name: Orthostatics; Complete Time: 06:32 snw 08/21 06:28 Order name: Hepatic Function; Complete Time: 07:38 snw 08/21 11:12 Order name: Urine Dipstick--Ancillary (enter results); Complete Time: 11:39 em1 08/21 11:12 Order name: Urine --Ancillary (enter results); Complete Time: 11:39 em1 08/21 06:28 Order name: Labs collected and sent; Complete Time: 07:14 snw 08/21 07:08 Order name: Labs - recollect needed: recollect cbc; Complete Time: 07:32 08/21 08:34 Order name: Misc. Order: Need urine specimen; Complete Time: 11:11 snw Administered Medications: 07:02 Drug: NS 0.9% 1000 ml Route: IV; Rate: 1000 ml; Site: left antecubital; lp1 09:00 Follow up: Response: No adverse reaction; IV Status: Completed infusion; IV Intake: ph 1000ml 07:02 Drug: Antivert 50 mg Route: PO; lp1 08:00 Follow up: Response: No adverse reaction ph Disposition: 08/22/19 11:41 Discharged to Home. Impression: Dehydration, Dizziness and giddiness. - Condition is Stable. - Discharge Instructions: Dehydration, Adult, Dizziness, Vertigo, Rehydration, Adult. - Prescriptions for Antivert 25 mg Oral Tablet - take 1 tablet by ORAL route every 8 hours As needed; 20 tablet. - Work release form, Medication Reconciliation Form, Thank You Letter, Antibiotic Education, Prescription Opioid Use form. - Follow up: Emergency Department; When: As needed; Reason: Worsening of condition. Follow up: Private Physician; When: 2 - 3 days; Reason: Recheck today's complaints, Continuance of care, Re-evaluation by your physician. Addendum: 08/25/2019 11:29 Co-signature as Attending Physician, Richardson Berger MD. r n Signatures: Dispatcher [employer] EDMS Fabi VillavicencioriJanett bauer, SCREEN TENDER HELPER-C SCREEN TENDER HELPER-Csnw Berger, Richardson, Kiya Camarena MD, rn, RN RN ss Shruthi Cruz RN RN lp1 Taina Monet RN ph Corrections: (The following items were deleted from the chart) 08/21 12:42 11:41 08/22/2019 11:41 Discharged to Home. Impression: Dehydration; Dizziness and ss giddiness. Condition is Stable. Forms are Medication Reconciliation Form, Thank You Letter, Antibiotic Education, Prescription Opioid Use. Follow up: Emergency Department; When: As needed; Reason: Worsening of condition. Follow up: Private Physician; When: 2 - 3 days; Reason: Recheck today's complaints, Continuance of care, Re-evaluation by your physician. snw
[2019-08-22 12:49] VITALS: TEMP 98.2; O2SAT 100
[2019-08-22 12:54] VITALS: BP 141/84
== END 2019-08-22 12:42 | disposition home or self-care (01) ==
LOC: ER 05:51
DX: E86.0 Dehydration (principal); R42 Dizziness and giddiness
CPT/HCPCS: 36415; 80048; 80076; 81003; 81025; 83690; 85025; 87086; 87088; 96360; 96361; 99284; J7030; J8597

== ENCOUNTER 2020-07-01 13:22 | Emergency (ER) | payer BC, SELFPAY ==
--- OUTSIDE RECORDS SUMMARY | 2020-07-01 13:24 | XMS REPORT | Continuity of Care Document ---
:1985 Author Organization [facility] t Address [address] [place] [address] Care Team Providers Name Role Phone Harshad Shetty Attending Clinician Gael Stover NP Attending Clinician Problems This patient has no known problems. Allergies, Adverse Reactions, Alerts This patient has no known allergies or adverse reactions. Medications This patient has no known medications. Procedures This patient has no known procedures. Encounters Start End Encounter Admission Attending Care Care Encounter Source Date/Time Date/Time Type Type Clinicians Facility Department ID 2020-06-29 2020-06-29 Emergency [place] [id number] 13:10:00 15:23:00 Leona He [id number] [place] [id number] [place] [id number] 2020-06-20 2020-06-20 Emergency [facility] [id number] 15:49:00 18:29:00 Fatuma He [id number] [place] [id number] [place] [id number] Results This patient has no known results.
--- OUTSIDE RECORDS SUMMARY | 2020-07-01 13:25 | XMS REPORT | Summary of Care ---
:1985 Author Organization [facility] Address [address] [place] [address] Care Team Providers Name Role Phone Pcp, Does Not Have A Primary Care Provider Reason for Visit Reason Comments Flank Pain Auth/Cert Status Reason Specialty Diagnoses / Referred By Referred To Procedures Contact Contact Emergency Medicine Ad[facility] Em ergency Dept [address] [place] [address] Fax: Encounter Details Date Type Department Care Team Description 06/29/2020 Emergency ADC-Emergency Leona Mayes, Myalgia (P rimary Dx); Department EMNP Bilateral flank pain; [address] [facility] COVID-[place] [address] [id number] [place], [place] [id number] Allergies No Known Allergiesdocumented as of this encounter (statuses as of 06/29/2020) Medications Medication Sig Dispensed Refills Start Date End Date Status butalbital-acetaminoph Take 1 tablet by 20 tablet 0 06/20/2020 Active en-caff 50-325-40 mg mouth every 4 tabletIndications: (four) hours as COVID-19 virus needed for Pain infection (scale 4-6) or Pain (scale 7-10). documented as of this encounter (statuses as of 06/29/2020) Active Problems Problem Noted Date Pain pelvic 11/17/2017 Umbilical hernia without obstruction and without gangr ayaan 10/20/2017 Overview: Added automatically from request for sp pierce [id number] Depo-Provera contraceptive status 07/24/2013 Morbid obesity 04/10/2013 documented as of this encounter (statuses as of 06/29/2020) Resolved Problems Problem Noted Date Resolved Date Presence of of 52 mg levonorgestrel-releasing intrauterine 0 11/17/2017 12/27/2017 device (IUD) Surveillance of previously prescribed contraceptive pill 08/201402/19/2016 Irregular menstrual cycle 03/21/2015 02/19/2016 Elevated blood pressure reading without diagnosis of 015 02/19/2016 hypertension Screening for STD (sexually transmitted disease) 03/21/2015 02/19/2016 General counselling and advice on contraception 03/21/2015 03/22/2015 Yeast infection of the vagina 03/21/2015 02/19/2016 Anemia 07/25/2013 03/21/2015 Overview: ICD10 Diagnosis Term [employer] Utility Irregular bleeding 07/24/2013 03/22/2015 Overview: IUD removed 06/15/2013 Pain pelvic 07/24/2013 03/21/2015 Encounter for insertion of intrauterine contraceptive device 05/29/2013 07/24/2013 Overview: Paragard IUD exp. 05/29/2023 Encounter for routine gynecological examination 04/10/2013 02/19/2016 Overview: ICD10 Diagnosis Term [employer] Utility Other general counseling and advice for contraceptive 201205/29/2013 management documented as of this encounter (statuses as of 06/29/2020) Immunizations Name Administration Dates Next Due Rubella 09/10/2011 TDAP 08/05/2011 documented as of this encounter Social History Tobacco Use Types Packs/Day Years Used Date Never Smoker Smokeless Tobacco: Never Used Alcohol Use Drinks/Week oz/Week Comments No Sex Assigned at Date Recorded Not on file COVID-19 Exposure Response Date Recorded In the last month, have you been in contact with Yes 06/29/2020 1:07 PM PATTERN DRUM MAKER someone who was confirmed or suspected to have Coronavirus / COVID-19? documented as of this encounter Last Filed Vital Signs Vital Sign Reading Time Taken Comments Blood Pressure 131/83 06/29/2020 3:00 PM PATTERN [employer]UM [employer]ER Pulse 86 06/29/2020 3:00 PM PATTERN DRUM MAKER Temperature 37 C (98.6 F) 06/29/2020 3:00 PM PATTERN DRUM MAKER Respiratory Rate 19 06/29/2020 3:00 PM PATTERN DRUM MAKER Oxygen Saturation 100% 06/29/2020 3:00 PM PATTERN DRUM MAKER Inhaled Oxygen Concentration - - Weight 102.1 kg (225 lb) 06/29/2020 1:09 PM PATTERN DRUM MAKER Height - - Body Mass Index 39.86 06/20/2020 3:47 PM PATTERN [employer]UM MAKER documented in this encounter Discharge Instructions Leona Hernandez EMNP - 06/29/2020NO LIFE-THREATENING FINDINGS ON TODAY'S EXAM. SPECIAL INSTRUCTIONS: 1. See attached information 2. May take 2 tylenol every 4 hours for pain 3. May take motrin 600mg every 6 hours with food for pain 4. Rest 5. Increase fluids FOLLOW-UP RECOMMENDATIONS: RECOMMEND FOLLOW-UP WITH A PRIMARY CARE PROVIDER OR SPECIALIST IN 2-5 DAYS, ESPECIALLY IF NO IMPROVEMENT IN SYMPTOMS. TO FOLLOW-UP WITHIN THE [facility], TRY THESE OPTIONS (CLINIC APPOINTMENTS AVAILABLE ON [id number] BASIS): 1. SCHEDULE AN APPOINTMENT ONLINE AT [email or web address] 2. OR CALL THE [facility] AT OR 3. OR CALL YOUR [facility] PHYSICIAN'S OFFICE DIRECTLY IF YOU ARE ALREADY AN ESTABLISHED [facility] PATIENT. OR, YOU MAY FOLLOW-UP WITH A PROVIDER OF YOUR CHOICE, SUCH : 1. A PHYSICIAN OF YOUR CHOICE 2. [facility], . LOCATIONS IN [facility] 3. [facility], [address] [place] [address]; [phone] RETURN TO ER FOR WORSENING OF SYMPTOMS. AttachmentsThe following attachments cannot be sent through Care Everywhere. Myalgias ([place])Coronavirus Disease 2019 (COVID-19)- Overview ([place]) Disinfecting Your Home of COVID-19 ([place])documented in this encounter ED Notes Jagdish Kate RN - 06/29/2020 1:07 PM CSTPatient c/o bilateral flank pain for 1 week. Patient Covid +. Denies cough, fever or shortness of breath. Burning with urination. documented in this encounter Miscellaneous Notes ED Nurse Note - Loe Martinez RN - 06/29/2020 3:21 PM CSTDischarge teaching given. Patient verbalized understanding. Vitals stable. No acute distress noted. Patient ambulatory documented in this encounter Plan of Treatment Health Maintenance Due Date Last Done Comments VARICELLA VACCINES (1 of 2 - 1986 2-dose childhood series) PNEUMOCOCCAL 0-64 YEARS COMBINED 08/21/1991 SERIES (1 of 3 - PCV13) Depression Screening 1997 PAP SMEAR 03/21/2018 03/21/2015, 08/05/2011, 06/30/2007, Additional history exists INFLUENZA VACCINE (#1) 2020 DTaP,Tdap,and Td Vaccines (2 - Td) 08/05/2021 08/05/2011 documented as of this encounter Procedures Procedure Name Priority Date/Time Associated Comments Diagnosis URINALYSIS STAT 06/29/2020 1:39 PM Bilateral flank Resul ts for this [employer]TERN [employer]UM [employer]KER pain procedure are i n the results section. CBC WITH DIFF STAT 06/29/2020 1:39 PM Bilateral flank Resu lts for this [employer]TERN [employer]UM MAKER pain procedure are i n the results section. COMP. METABOLIC STAT 06/29/2020 1:39 PM Bilateral flank Re sults for this PANEL ([id number]) PATTERN [employer]KER pain procedure are in the results section. POCT TEST JANNETTE 06/29/2020 1:31 PM Bilateral flan k Results for this PATTERN [employer]UM [employer]KER pain procedure are i n the results section. CONSENT/REFUSAL FOR Routine 06/29/2020 12:46 PM DIAGNOSIS AND PATTERN DRUM MAKER TREATMENT documented in this encounter Results URINALYSIS (06/29/2020 1:39 PM PATTERN DRUM MAKER) Pathologist Sig nature APPEARANCE Hazy (A) Clear [facility] COLOR Yellow Yellow [facility] PH 5.0 4.8 - 8.0 [facility] SP GRAVITY 1.027 1.003 - 1.030 [facility] GLU U QUAL Normal Normal [facility] BLOOD Negative Negative [facility] KETONES Negative Negative [facility] PROTEIN Negative Negative [facility] UROBILIN Normal Normal [facility] BILIRUBIN Negative Negative [facility] NITRITE Negative Negative [facility] LEUK JONATHAN Negative Negative [facility] RBC/HPF 2 0 - 3 HPF [facility] WBC/HPF 1 0 - 5 HPF [facility] BACTERIA Few (A) Negative [facility] MUCOUS Slight (A) Negative LPF [facility] SQ EPITH 4 HPF [facility] Specimen Urine - URINE, CLEAN CATCH Performing Organization Address City/State/Zipcode Phone Number [facility] CLIA: [id number] [place] [address] COMP. METABOLIC PANEL ([id number]) (06/29/2020 1:39 PM PATTERN DRUM MAKER) Pathologist Sig nature NA 142 135 - 145 [facility] mmol/L [facility] K 3.9 3.5 - 5.0 [facility] mmol/L [facility] CL 105 98 - 108 mmol/L [facility] CO2 TOTAL 26 23 - 31 mmol/L [facility] AGAP 11 2 - 16 [facility] BUN 11 7 - 23 mg/dL [facility] GLUCOSE 125 (H) 70 - 110 mg/dL [facility] CREATININE 0.65 0.50 - 1.04 [facility] mg/dL [facility] TOTAL BILI 0.4 0.1 - 1.1 mg/dL [facility] CALCIUM 9.1 8.6 - 10.6 [facility] mg/dL [facility] T PROTEIN 8.1 6.3 - 8.2 g/dL [facility] ALBUMIN 4.4 3.5 - 5.0 g/dL [facility] ALK PHOS 72 34 - 122 U/L [facility] ALTv 26 5 - 35 U/L [facility] AST(SGOT) 50 (H) 13 - 40 U/L [facility] eGFR Calculation 104.3 mL/min/1.73m2 [facility] (Non-[facility] Bh[place]) eGFR Calculation 126.5 mL/min/1.73m2 [facility] () [facility] Specimen Blood - VENOUS Narrative Performed At Association of Glomerular Filtration Rate (GFR) [facility] and Staging of Kidney Disease* + + +- + | GFR (mL/min/1.73 m2) | With Kidney Damage | Without Kidney Damage + + +- + | >90 | Stage one | Normal + + +- + | 60-89 | Stage two | Decreased GFR + + +- + | 30-59 | Stage three | Stage three + + +- + | 15-29 | Stage four | Stage four + + +- + | <15 (or dialysis) | Stage five | Stage five + + +- + *Each stage assumes the associated GFR level has been in effect for at least three months. Stages 1 to 5, with or without kidney disease, indicate chronic kidney disease. Notes: Determination of stages one and two (with eGFR >59mL/min/1.73 m2) requires estimation of kidney damage for at least three months as defined by structural or functional abnormalities of the kidney, manifested by either: Pathological abnormalities or Markers of kidney damage (including abnormalities in the composition of the blood or urine or abnormalities in imaging tests). Performing Organization Address City/State/Zipcode Phone Number [facility] CLIA: [id number] [place] [address] CBC WITH DIFF (06/29/2020 1:39 PM PATTERN DRUM MAKER) Pathologist Sig nature WBC 5.92 4.30 - 11.10 [facility] 10*3/L [facility] RBC 4.87 3.93 - 5.25 [facility] 10*6/L [facility] HGB 11.0 (L) 11.6 - 15.0 [facility] g/dL [facility] HCT 36.0 35.7 - 45.2 % [facility] MCV 73.9 (L) 80.6 - 95.5 fL [facility] MCH 22.6 (L) 25.9 - 32.8 pg [facility] MCHC 30.6 (L) 31.6 - 35.1 [facility] g/dL [facility] RDW-SD 42.7 39.0 - 49.9 fL [facility] RDW-CV 16.1 (H) 12.0 - 15.5 % [facility] PLT 318 166 - 358 [facility] 10*3/L [facility] MPV 9.4 (L) 9.5 - 12.9 fL [facility] NRBC/100 WBC 0.0 0.0 - 10.0 /100 [facility] WBCs [facility] NRBC x10^3 <0.01 10*3/L [facility] GRAN MAT (NEUT) % 69.3 % [facility] IMM GRAN % 0.20 % [facility] LYMPH % 24.3 % [facility] MONO % 5.2 % [facility] EOS % 0.8 % [facility] BASO % 0.2 % [facility] GRAN MAT x10^3(ANC) 4.10 1.88 - 7.09 [facility] 10*3/uL [facility] IMM GRAN x10^3 <0.03 0.00 - 0.06 [facility] 103/uL [facility] LYMPH x10^3 1.44 1.32 - 3.29 [facility] 10*3/uL [facility] MONO x10^3 0.31 (L) 0.33 - 0.92 [facility] 10*3/uL [facility] EOS x10^3 0.05 0.03 - 0.39 [facility] 10*3/uL [facility] BASO x10^3 <0.03 0.01 - 0.[address] Specimen Blood - VENOUS Performing Organization Address City/State/Zipcode Phone Number [facility] CLIA: [id number] [place] [address] POCT TEST (06/29/2020 1:31 PM PATTERN DRUM MAKER) Pathologist Sig nature POCT PREG negative POCT PREG LOT # [id number] POCT PREG TEST DATE 02/17/2022 Specimen Urine - URINE, CLEAN CATCH documented in this encounter Visit Diagnoses Diagnosis Myalgia - Primary Mylagia and myositis, unspecified Bilateral flank pain Abdominal pain, unspecified site COVID-19 virus infection documented in this encounter Administered Medications Medication Order MAR Action Action Date Dose Rate Site ketorolac (TORADOL) injection 15 Given 06/29/2020 1:44 PM PATTERN DRUM MAKER 1 5 mg mg 15 mg, Slow IV Push, ONCE, 1 dose, 06/29/20 at 1430, JANNETTE, [employer] fishing 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 member approving Restricted medication: HANDY MAYESDeon Patricia NaCl 0.9% (NS) bolus infusion New Bag 06/29/2020 1:40 PM PATTERN DRUM MAKER 1,000 mL 999 mL/hr 1,000 mL at 999 mL/hr, 1,000 mL, IV Infusion, ONCE, 1 dose, 06/29/20 at 1330, JANNETTE documented in this encounter Additional Health Concerns Infection Onset Date Last Indicated Resolved Time COVID-19 Confirmed 06/20/2020 06/20/2020 documented as of this encounter Insurance Payer Benefit Plan Subscriber ID Effective Dates Phone Address Type / Group [facility] [id number] 2015-Anselmo [phone] [address] PPO/POS [place] [id number] [place] [address] documented as of this encounter"
--- OUTSIDE RECORDS SUMMARY | 2020-07-01 13:25 | XMS REPORT | Summary of Care ---
:[address] 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 [address] [place] [address] [id number] [place], [place] [id number] Allergies No Known Allergiesdocumented as of this encounter (statuses as of 06/20/2020) Medications Medication Sig Dispensed Refills Start Date End Date Status butalbital-acetaminoph Take 1 tablet by 20 tablet 0 06/20/2020 Active en-caff 50-325-40 mg mouth every 4 tabletIndications: (four) hours as COVID-19 virus needed for Pain infection (scale 4-6) or Pain (scale 7-10). documented as of this encounter (statuses as of 06/20/2020) Active Problems Problem Noted Date Pain pelvic 11/17/2017 Umbilical hernia without obstruction and without gangr ayaan 10/20/2017 Overview: Added automatically from request for sp pierce [id number] Depo-Provera contraceptive status 07/24/2013 Morbid obesity 04/10/2013 documented as of this encounter (statuses as of 06/20/2020) Resolved Problems Problem Noted Date Resolved Date [...] Anemia 07/25/2013 03/21/2015 Overview: ICD10 Diagnosis Term Printer Helper Utility Irregular bleeding 07/24/2013 03/22/2015 Overview: IUD removed 06/15/2013 Pain pelvic 07/24/2013 03/21/2015 Encounter for insertion of intrauterine contraceptive device 05/29/2013 07/24/2013 Overview: Paragard IUD exp. 05/29/2023 Encounter for routine gynecological examination 04/10/2013 02/19/2016 Overview: ICD10 Diagnosis Term Printer Helper Utility Other general counseling and advice for contraceptive 201205/29/2013 management documented as of this encounter (statuses as of 06/20/2020) Immunizations Name Administration Dates Next Due Rubella 09/10/2011 TDAP 08/05/2011 documented as of this encounter Social History Tobacco Use Types Packs/Day Years Used Date Never Smoker Smokeless Tobacco: Never Used Alcohol Use Drinks/Week oz/Week Comments No Sex Assigned at Date Recorded Not on file COVID-19 Exposure Response Date Recorded In the last month, have you been in contact with No / Unsure 06/20/2020 3:32 PM INSTRUCTOR TAP DANCING someone who was confirmed or suspected to have Coronavirus / COVID-19? documented as of this encounter Last Filed Vital Signs Vital Sign Reading Time Taken Comments Blood Pressure 140/112 06/20/2020 3:47 PM INSTRUCTOR [employer] Pulse 90 06/20/2020 3:47 PM INSTRUCTOR [employer] Temperature 36.6 C (97.8 F) 06/20/2020 3:47 PM INSTRUCTOR TAP [employer]ANC[employer] Respiratory Rate 20 06/20/2020 3:47 PM INSTRUCTOR TAP DANCING Oxygen Saturation 100% 06/20/2020 3:47 PM INSTRUCTOR TAP [employer]ANC[employer] Inhaled Oxygen Concentration - - Weight 102.1 kg (225 lb) 06/20/2020 3:47 PM INSTRUCTOR [employer] Height 160 cm (5' 3") 06/20/2020 3:47 PM INSTRUCTOR [employer] DANC[employer] Body Mass Index 39.86 06/20/2020 3:47 PM INSTRUCTOR [employer]ANC[employer] documented in this encounter Discharge Instructions Fatuma Johnson NP - 1Diagnosis: Covid infection Prescription for esgic provided, judiciously use Tylenol and ibuprofen for fever, chills, headache or body aches Considering taking theses over the counter products : as used in some COVID treatment protocols Vitamin C 500 mg twice daily Quercetin 250 mg twice daily Zinc 75 mg at night Vitamin D 2000 units a day Aspirin 325 mg daily Pepcid 20 mg per day Your COVID 19 testing results were positive. At this time, the COVID 19 virus was detected in your sample. If this is the first time you tested positive for COVID 19, we recommend that you remain in self- quarantine along with those in your immediate household until you have been contacted by your [facility]'s health department who will work with you on when you may discontinue self- quarantine. In addition, your company's employee health department may have additional requirements for clearance to work. Please work with your [facility] health department to address those requirements. Please follow the advice you received in your After Visit Summary (AVS), the CDC document on what todo if you are sick with COVID and/or the CDC document on the COVID 19 test you received. Please stayinside and preferably in one room. Avoid close contact with your family and neighbors to prevent further spread. Wear a face mask if in the presence of someone else. Do not share household items such as dishes and toiletries. Be sure to clean your space thoroughly and wash your hands frequently. If you have symptoms, most people feel better within 7-14 days. If your symptoms are worsening and you feel very short of breath and you have difficulty performing basic tasks such as walking to the bathroomor preparing food, we would like you to contact the [facility] at [phone] or toll free to talk with a nurse or, if your symptoms are urgent, go to the nearest Emergency Room. Please wear a face mask and call prior to going to a healthcare facility. The local health department will be contacting you soon to follow up. If you are a [facility] or contract employee or student, please refer to this website for more information [email or web address]. If this is not the first positive result you received, please be advised that it is unclear, at thistime, how long the virus remains detectable in samples. It appears it could be weeks before a samplebecomes negative. The date of your first positive test and your current symptoms will determine whenyou may discontinue quarantine. Please work with the [facility] for instructions. For further guidance on when you can expect to discontinue quarantine and return to work, please visit the CDC website: https://www.cdc.gov/coronavirus/2019-ncov/hcp/esaenucipuv-qs-tmoe-patients.html. [facility] recommends the symptom-based strategy for those who have symptoms and the time-based strategy for those who do not have symptoms. Repeat testing is not routinely recommended for any reason due to the prolonged detection of the virus in samples without evidence of transmission. General guidance includes release from quarantine when the following conditions are met: At least 24 hours have passed since recovery defined as resolution of fever without the use of fever-reducing medications and Improvement in symptoms (e.g., cough, shortness of breath); and, At least 10 days have passed since symptoms first appeared or the first positive test if symptoms have not developed or worsened since testing, at which point, use date symptoms began. Continue to wear a face mask until 14 days have passed since your first test or first symptoms appeared. If you experience a worsening of symptoms or recover and then redevelop symptoms, please speak with a provider for further evaluation. Those in your household should remain in quarantine for 14 days to allow time for incubation, or, iftesting positive, should follow the above guidelines for discontinuing quarantine. documented in this encounter ED Notes Jane Herzog RN - 06/20/2020 3:46 PM CST34 year old female coming to the ER for pain in her mid back when she flexes her shoulders back and burning sinsus pressure with a headache. documented in this encounter Miscellaneous Notes ED Nurse Note - Giorgio Horan, RN - 06/20/2020 6:28 PM CSTVerbalized understanding of discharge instructions. No signs of distress observed. RR even and unlabored. Encouraged to return to ER if symptoms worsen. [employer]ANC[employer] documented in this encounter Plan of Treatment Name Type Priority Associated Diagnoses Date/Ti me LAB ONLY COVID LAB Routine Sore throat 06/20/2020 4 :57 PM INTERPRETATION INSTRUCTOR T[employer] DANCING THROAT CULTURE LAB STAT Sore throat 06/20/2020 4 :57 PM INSTRUCTOR TAP DANCING Name Type Priority Associated Diagnoses Order S chedule LAB ONLY COVID LAB Routine Sore throat ONCE for 1 Oc currences INTERPRETATION starting 06/2020 until 1 THROAT CULTURE LAB Routine Sore throat ONCE for 1 Oc currences starting 2020 until 1 Health Maintenance Due Date Last Done Comments VARICELLA VACCINES (1 of 2 1986 - 2-dose childhood series) Depression Screening 1997 PAP SMEAR 03/21/2018 03/21/2015, 08/05/2011, 06/30/2007, Additional history exists INFLUENZA VACCINE (#1) 2020 DTaP,Tdap,and Td Vaccines 08/05/2021 08/05/2011 (2 - Td) PNEUMOCOCCAL 0-64 YEARS Aged Out No longe r eligible COMBINED SERIES based on patient 's age to complete this topic documented as of this encounter Procedures Procedure Name Priority Date/Time Associated Diagnosis Comme nts COVID-19 (ID NOW STAT 06/20/2020 4:57 PM Sore throat Resu lts for this RAPID TESTING) INSTRUCTOR TAP DANCING procedure are in the results section. ADC,CLC OR LCC ONLY STAT 06/20/2020 4:57 PM Sore throat R esults for this - INFLUENZA A & B [employer]CTOR [employer]ANC[employer] procedure are in DIRECT ANTIGEN the results section. RAPID STREP SCREEN STAT 06/20/2020 4:57 PM Sore throat Re sults for this FOR GROUP A [employer]STRUCTOR TAP [employer]ANCING procedure are i n the results section. NOTICE OF PRIVACY Routine 06/20/2020 3:32 PM PRACTICES INSTRUCTOR TAP DANCING documented in this encounter Results ADC,CLC OR LCC ONLY - INFLUENZA A & B DIRECT ANTIGEN (06/20/2020 4:57 PM INSTRUCTOR TAP DANCING) Pathologist Sig nature Influenza A Negative Negative [facility] Influenza B Negative Negative [facility] Specimen Swab - NASOPHARYNGEAL SWAB Performing Organization Address [facility] [place] Phone Number [facility] CLIA: [id number] [place], [place] [id number] [address] COVID-19 (ID NOW RAPID TESTING) (06/20/2020 4:57 PM INSTRUCTOR TAP DANCING) SARS-CoV-2 Rapid ID Positive (A) Not Detected [facility] Specimen Swab - NASOPHARYNGEAL SWAB Narrative Performed At [facility] NOW COVID-19 Assay is an isothermal nucleic [facility] acid amplification test intended for the qualitative detection of nucleic acid from SARS-CoV-2 viral RNA in nasopharyngeal (COLLECTION TELLER) specimens. It is used under Emergency Use Authorization (EUA) by FDA. The limit of detection (LOD) of the assay is 125 Genome Equivalents/mL. A positive result is indicative of the presence of SARS-CoV-2 RNA. Clinical correlation with patient history and other diagnostic information is necessary to determine patient infection status. A negative (Not Detected) result does not preclude SARS-CoV-2 infection. In patients with clinical symptoms and other tests that are consistent with SARS-CoV-2 infection, negative results should be treated as presumptive negative and a new specimen should be tested with alternative PCR molecular test. Invalid: Please collect a new specimen for repeat patient testing if clinically indicated. Performing Organization Address [facility] Phone Number [facility] CLIA: [id number] [place] [address] RAPID STREP SCREEN FOR GROUP A (06/20/2020 4:57 PM INSTRUCTOR TAP DANCING) Pathologist Sig nature Streptococcus pyogenes Negative Negative [facility] (group A) antigen [facility] Specimen Swab - THROAT Performing Organization Address City/[facility]/Zipcode Phone Number [facility] CLIA: [id number] [place] [address] documented in this encounter Visit Diagnoses Diagnosis Sore throat - Primary Acute pharyngitis COVID-19 virus infection documented in this encounter Administered Medications Medication Order MAR Action Action Date Dose Rate Site hofjeodhnk-jnwckgulfbkme-rldh Given 06/20/2020 4:56 PM INSTRUCTOR TAP DANCING 2 ta blets (ESGIC) 50-325-40 mg tablet 2 tablet 2 tablet, Oral, ONCE, 1 dose, Tue06/20/20 at 1800, Routine dexamethasone (DECADRON PHOSPHATE) Given 06/20/2020 5:03 PM INSTRUCTOR TAP DANCING 10 mg Left Hip injection 10 mg 10 mg, Intramuscular, ONCE, 1 dose, Tue06/20/20 at 1800, Routine documented in this encounter Additional Health Concerns Infection Onset Date Last Indicated Resolved Time COVID-19 Rule Out 06/20/2020 06/20/2020 06/20/2020 5: 29 PM INSTRUCTOR TAP DANCING COVID-19 Confirmed 06/20/2020 06/20/2020 documented as of this encounter Insurance Payer Benefit Plan Subscriber ID Effective Dates Phone Address Type / Group [facility] [id number] 2015-Anselmo [phone] [address] PPO/POS [facility] [id number] [place] [address] documented as of this encounter
[2020-07-01] MEDS ORDERED: ASPIRIN 81 MG CHEWABLE TABLET ONE (14:48)
[2020-07-01] MEDS ORDERED: NA CHLORIDE 0.9% 1,000 ML ONE (14:49)
--- NOTE | 2020-07-01 14:59 | RAD REPORT ---
EXAM DESCRIPTION: Lalo Single View07/01/2020 2:25 pm CLINICAL HISTORY: Chest pain COMPARISON: 2018 FINDINGS: The lungs appear clear of acute infiltrate. The heart is normal size IMPRESSION: No acute abnormalities displayed
[2020-07-01 15:01] LABS: Absolute Lymphocytes (CBC) 1.5 K/uL (0.7-4.9); Basophils % 0.6 % (0-1.3); Hematocrit 34.5 % (36.0-45.0); Lymphocytes % 22.7 % (15.3-44.8); MPV 7.8 fL (7.6-11.3); RBC Red Blood Cell Count 4.82 M/uL (3.86-4.86)
[2020-07-01 15:02] LABS: Barbiturates POSITIVE (NEGATIVE); Benzodiazepines NEGATIVE (NEGATIVE); Cocaine NEGATIVE (NEGATIVE); METHAMPHETAM NEGATIVE (NEGATIVE); Methadone NEGATIVE (NEGATIVE); Opiates NEGATIVE (NEGATIVE); Phencyclidine NEGATIVE (NEGATIVE); THC Cannibis NEGATIVE (NEGATIVE)
[2020-07-01 15:08] LABS: ALT/SGPT 32 U/L (12-78); AST/SGOT 43 U/L (15-37); Albumin 3.6 g/dL (3.4-5.0); Alkaline Phosphatase 86 U/L (45-117); BUN Blood Urea Nitrogen 9 mg/dL (7-18); Bicarbonate 30 mmol/L (21-32); Bilirubin Direct < 0.1 mg/dL (0-0.2); Bilirubin Total 0.2 mg/dL (0.2-1.0); Glucose Level 81 mg/dL (74-106); Lipase 216 U/L (73-393); Magnesium 2.1 mg/dL (1.8-2.4); NT PRO-BNP 38 pg/mL (<125); Potassium 3.6 mmol/L (3.5-5.1); Protein, Total 8.5 g/dL (6.4-8.2); Sodium Level 141 mmol/L (136-145); Troponin (Emerg Dept Use Only) < 0.02 ng/mL (0.0-0.045)
[2020-07-01 15:25] LABS: Urine Blood NEGATIVE (NEG); Urine Glucose NEGATIVE (NEG); Urine Protein NEGATIVE (NEG); Urine Specific Gravity 1.025 (1.005-1.030)
--- NOTE | 2020-07-01 16:01 | ER ---
Nurse's Notes [facility] Name: Tatyana Becerril Age: 34 yrs Sex: Female : 1985 Arrival Date: 07/01/2020 Time: 13:24 Bed 14 Private MD: Diagnosis: Other chest pain Presentation: 07/01 13:31 Chief complaint: Patient states: shocking pain to L shoulder and numbness/ tingling to ss L arm that began 2 days ago. Pt reports yesterday she had some chest discomfort that last 25 minutes as well. Coronavirus screen: Client denies travel out of the [place] in the last 14 days. Ebola Screen: Patient denies exposure to infectious person. Patient denies travel to an Ebola-affected area in the 21 days before illness onset. Initial Sepsis Screen: Does the patient meet any 2 criteria? No. Patient's initial sepsis screen is negative. Does the patient have a suspected source of infection? No. Patient's initial sepsis screen is negative. Risk Assessment: Do you want to hurt yourself or someone else? Patient reports no desire to harm self or others. Onset of symptoms was June 29, 2020. 13:31 Method Of Arrival: Ambulatory ss 13:31 Acuity: [place] 3 ss WIENER PACKER: 16:14 LMP N/A - tw2 Historical: - Allergies: 13:33 No Known Allergies; ss - PMHx: 13:33 GERD; ss - PSHx: 13:33 None; ss - Immunization history:: Adult Immunizations up to date. - Social history:: Smoking status: Patient denies any tobacco usage or history of. Screenin:52 Abuse screen: Denies threats or abuse. Nutritional screening: No deficits noted. tw2 Tuberculosis screening: No symptoms or risk factors identified. Fall Risk None identified. Assessment: 13:50 General: Appears in no apparent distress. obese, well groomed, Behavior is calm, tw2 cooperative, appropriate for age. Pain: Complains of pain in chest Pain does not radiate. Pain began 1 day ago. Neuro: Level of Consciousness is awake, alert, obeys commands, Oriented to person, place, time, situation. Cardiovascular: Capillary refill < 3 seconds Patient's skin is warm and dry. Respiratory: Airway is patent Respiratory effort is even, unlabored, Respiratory pattern is regular, symmetrical. GI: No signs and/or symptoms were reported involving the gastrointestinal system. Abdomen is round non-distended, obese. : No signs and/or symptoms were reported regarding the genitourinary system. EENT: No signs and/or symptoms were reported regarding the EENT system. Derm: No signs and/or symptoms reported regarding the dermatologic system. Musculoskeletal: Range of motion: intact in all extremities. 14:53 Reassessment: Patient appears in no apparent distress at this time. No changes from tw2 previously documented assessment. Patient and/or family updated on plan of care and expected duration. Pain level reassessed. Patient is alert, oriented x 3, equal unlabored respirations, skin warm/dry/pink. 15:41 Reassessment: Patient appears in no apparent distress at this time. No changes from tw2 previously documented assessment. Patient and/or family updated on plan of care and expected duration. Pain level reassessed. Patient is alert, oriented x 3, equal unlabored respirations, skin warm/dry/pink. provider at bedside at this time. 16:13 Reassessment: Patient appears in no apparent distress at this time. No changes from tw2 previously documented assessment. Patient and/or family updated on plan of care and expected duration. Pain level reassessed. Patient is alert, oriented x 3, equal unlabored respirations, skin warm/dry/pink. Vital Signs: 13:33 BP 134 / 77; Pulse 90; Resp 16; Temp 97.7(TE); Pulse Ox 100% on R/A; Weight 104.33 kg; Height 5 ft. 3 in. (160.02 cm); Pain 0/10; 14:53 BP 141 / 75; Pulse 79; Resp 18; Pulse Ox 100% on R/A; tw2 15:41 BP 129 / 87; Pulse 86; Resp 17; Pulse Ox 99% on R/A; tw2 13:33 Body Mass Index 40.74 (104.33 kg, 160.02 cm) ED Course: 13:24 Patient arrived in ED. as 13:33 Triage completed. ss 13:33 Arm band placed on right wrist. ss 13:50 Placed in gown. Bed in low position. traffic monitor specialist on. Pulse ox on. NIBP on. Warm tw2 blanket given. 13:50 Patient maintains SpO2 saturation greater than 95% on room air. tw2 13:51 Diane Alonso, RN is Primary Nurse. tw2 14:01 Alan Moss MD is Attending Physician. [facility] 14:25 XRAY Chest (1 view) In Process Unspecified. EDMS 14:37 Inserted saline lock: 20 gauge in left antecubital area, using aseptic technique. tw2 ,using aseptic technique. [employer] Blood collected. 15:59 Dada Chavez MD is Referral Physician. [facility] 15:59 Jacinto Wiley MD is Referral Physician. [facility] 16:14 No provider procedures requiring assistance completed. tw2 16:16 IV discontinued, intact, bleeding controlled, No redness/swelling at site. Pressure tw2 dressing applied. Administered Medications: 14:37 Drug: NS 0.9% 1000 ml Route: IV; Rate: 1 bolus; Site: left antecubital; tw2 16:12 Follow up: Response: No adverse reaction; IV Status: Completed infusion; IV Intake: tw2 1000ml 14:37 Drug: Aspirin 81 mg Route: PO; tw2 15:18 Follow up: Response: No adverse reaction tw2 Intake: 16:12 IV: 1000ml; Total: 1000ml. tw2 Outcome: 16:00 Discharge ordered by . [facility] 16:16 Discharged to home ambulatory. tw2 16:16 Condition: stable 16:16 Discharge instructions given to patient, Instructed on discharge instructions, follow up and referral plans. medication usage, Demonstrated understanding of instructions, follow-up care, medications, Prescriptions given X 1. 16:17 Patient left the ED. tw2 Signatures: Dispatcher [employer] [facility] Alan Moss MD MD cha Martinez, Amelia as Smirch, Shelby, LETICIA RN Diane Alonso RN RN tw2
--- NOTE | 2020-07-01 16:01 | EDPHYS ---
Physician Documentation [facility] Name: Tatyana Becerril Age: 34 yrs Sex: Female : 1985 Arrival Date: 07/01/2020 Time: 13:24 Bed 14 Private MD: ED Physician Alan Moss HPI: 07/01 15:48 This 34 yrs old Black Female presents to ER via Ambulatory with complaints of Numbness ulysses Of Hand, Chest Pain, Numbness of Leg. 15:48 This 34 yrs old Black Female presents to ER via Ambulatory with complaints of Numbness ulysses Of Hand, Chest Pain, Numbness of Leg. 15:48 The patient or guardian reports pain. 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 - Social history:: Smoking status: Patient denies any tobacco usage or history of. ROS: 15:49 Constitutional: Negative for fever, chills, and weight loss, Eyes: Negative for injury, ulysses pain, redness, and discharge, ENT: Negative for injury, pain, and discharge, Neck: Negative for injury, pain, and swelling, Respiratory: Negative for shortness of breath, cough, wheezing, and pleuritic chest pain, Abdomen/GI: Negative for abdominal pain, nausea, vomiting, diarrhea, and constipation, Back: Negative for injury and pain, : Negative for injury, bleeding, discharge, and swelling, MS/Extremity: Negative for injury and deformity, Skin: Negative for injury, rash, and discoloration, Neuro: Negative for headache, weakness, numbness, tingling, and seizure, Psych: Negative for depression, anxiety, suicide ideation, homicidal ideation, and hallucinations, Allergy/Immunology: Negative for hives, rash, and allergies, Endocrine: Negative for neck swelling, polydipsia, polyuria, polyphagia, and marked weight changes, Hematologic/Lymphatic: Negative for swollen nodes, abnormal bleeding, and unusual bruising. 15:49 Cardiovascular: Positive for chest pain, of the chest. Exam: 15:49 Constitutional: This is a well developed, well nourished patient who is awake, alert, ulysses and in no acute distress. Head/Face: Normocephalic, atraumatic. Eyes: Pupils equal round and reactive to light, extra-ocular motions intact. Lids and lashes normal. Conjunctiva and sclera are non-icteric and not injected. Cornea within normal limits. Periorbital areas with no swelling, redness, or edema. ENT: Nares patent. No nasal discharge, no septal abnormalities noted. Tympanic membranes are normal and external auditory canals are clear. Oropharynx with no redness, swelling, or masses, exudates, or evidence of obstruction, uvula midline. Mucous membranes moist. Neck: Trachea midline, no thyromegaly or masses palpated, and no cervical lymphadenopathy. Supple, full range of motion without nuchal rigidity, or vertebral point tenderness. No Meningismus. Chest/axilla: Normal chest wall appearance and motion. Nontender with no deformity. No lesions are appreciated. Cardiovascular: Regular rate and rhythm with a normal S1 and S2. No gallops, murmurs, or rubs. Normal PMI, no JVD. No pulse deficits. Respiratory: Lungs have equal breath sounds bilaterally, clear to auscultation and percussion. No rales, rhonchi or wheezes noted. No increased work of breathing, no retractions or nasal flaring. Abdomen/GI: Soft, non-tender, with normal bowel sounds. No distension or tympany. No guarding or rebound. No evidence of tenderness throughout. Back: No spinal tenderness. No costovertebral tenderness. Full range of motion. Skin: Warm, dry with normal turgor. Normal color with no rashes, no lesions, and no evidence of cellulitis. MS/ Extremity: Pulses equal, no cyanosis. Neurovascular intact. Full, normal range of motion. Neuro: Awake and alert, GCS 15, oriented to person, place, time, and situation. Cranial nerves II-XII grossly intact. Motor strength 5/5 in all extremities. Sensory grossly intact. Cerebellar exam normal. Normal gait. Psych: Awake, alert, with orientation to person, place and time. Behavior, mood, and affect are within normal limits. 15:55 ECG was reviewed by the Attending Physician. [facility] Vital Signs: 13:33 BP 134 / 77; Pulse 90; Resp 16; Temp 97.7(TE); Pulse Ox 100% on R/A; Weight 104.33 kg; ss Height 5 ft. 3 in. (160.02 cm); Pain 0/10; 14:53 BP 141 / 75; Pulse 79; Resp 18; Pulse Ox 100% on R/A; tw2 15:41 BP 129 / 87; Pulse 86; Resp 17; Pulse Ox 99% on R/A; tw2 13:33 Body Mass Index 40.74 (104.33 kg, 160.02 cm) ss MDM: 14:01 Patient medically screened. ulysses 15:56 Differential diagnosis: abnormal EKG, acute myocardial infarction, anxiety, chest wall ulysses pain, congestive heart failure Cholelithiasis costochondritis, hiatal hernia, peptic ulcer disease, pneumonia, pulmonary embolus, stable angina, unstable angina. HEART Score: History: Slightly Suspicious (0), ECG: Normal (0), Age: < or = 45 years (0), Risk Factors: No Risk Factors Known (0), Troponin: < or = 1 x Normal Limit (0). The patient's deep vein thrombosis risk score was calculated as follows: Total Score: 0. This patient was found to be at low risk for a deep vein thrombosis by using the Well's assessment criteria. The patient's pulmonary embolism risk score was calculated as follows: Total Score: 0-2 points. This patient was found to be at low risk for a pulmonary embolism by using the Well's assessment criteria. EMILY Risk Score: TOTAL SCORE = 0. Data reviewed: vital signs, nurses notes, lab test result(s), EKG, radiologic studies, plain films. 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 Test interpretation: by ED physician or midlevel provider: ECG, plain radiologic studies. Counseling: I had a detailed discussion with the patient and/or guardian regarding: the historical points, exam findings, and any diagnostic results supporting the discharge/admit diagnosis, lab results, radiology results, the need for outpatient follow up, for definitive care, a medical psychotherapist, a family practitioner. 07/01 14:04 Order name: Basic Metabolic Panel; Complete Time: 15:27 ulysses 07/01 14:04 Order name: CBC with Diff; Complete Time: 15:27 [facility] 07/01 14:04 Order name: LFT's; Complete Time: 15:27 [facility] 07/01 14:04 Order name: Magnesium; Complete Time: 15:27 [facility] 07/01 14:04 Order name: NT PRO-BNP; Complete Time: 15:27 [facility] 07/01 14:04 Order name: Troponin (emerg Dept Use Only); Complete Time: 15:27 [facility] 07/01 14:04 Order name: XRAY Chest (1 view); Complete Time: 15:27 [facility] 07/01 14:04 Order name: Lipase; Complete Time: 15:27 [facility] 07/01 14:04 Order name: UDS; Complete Time: 15:27 [facility] 07/01 14:06 Order name: D-Dimer; Complete Time: 15:27 [facility] 07/01 14:41 Order name: Urine Dipstick--Ancillary (enter results); Complete Time: 15:27 07/01 14:41 Order name: Urine --Ancillary (enter results); Complete Time: 15:27 07/01 14:04 Order name: EKG; Complete Time: 14:06 [facility] 07/01 14:04 Order name: Cardiac monitoring; Complete Time: 14:37 [facility] 07/01 14:04 Order name: EKG - Nurse/Tech; Complete Time: 14:37 [facility] 07/01 14:04 Order name: IV Saline Lock; Complete Time: 14:37 [facility] 07/01 14:04 Order name: Labs collected and sent; Complete Time: 14:37 [facility] 07/01 14:04 Order name: O2 Per Protocol; Complete Time: 14:20 [facility] 07/01 14:04 Order name: O2 Sat Monitoring; Complete Time: 14:20 [facility] 07/01 14:04 Order name: Urine Dipstick-Ancillary (obtain specimen); Complete Time: 14:37 [facility] 07/01 14:04 Order name: Urine Test (obtain specimen); Complete Time: 14:37 [facility] EC:55 Rate is 81 beats/min. Rhythm is regular. QRS [place] is Normal. NH interval is normal. QRS ulysses interval is normal. QT interval is normal. No Q waves. T waves are Normal. No ST changes noted. Clinical impression: NSR w/ Non-specific ST/T Changes and No evidence of ischemia. Interpreted by me. Reviewed by me. Administered Medications: 14:37 Drug: NS 0.9% 1000 ml Route: IV; Rate: 1 bolus; Site: left antecubital; tw2 16:12 Follow up: Response: No adverse reaction; IV Status: Completed infusion; IV Intake: tw2 1000ml 14:37 Drug: Aspirin 81 mg Route: PO; tw2 15:18 Follow up: Response: No adverse reaction tw2 Disposition: 07/01/20 16:00 Discharged to Home. Impression: Other chest pain. - Condition is Stable. - Discharge Instructions: Nonspecific Chest Pain, Nonspecific Chest Pain, Nosb-ox-Apfa, Aspirin and Your Heart. - Prescriptions for Pepcid 20 mg Oral Tablet - take 1 tablet by ORAL route every 12 hours for 10 days; 20 tablet. - Medication Reconciliation Form, Thank You Letter, Antibiotic Education, Prescription Opioid Use, Work release form form. - Follow up: Dada Chavez MD; When: 2 - 3 days; Reason: Recheck today's complaints, Continuance of care, Re-evaluation by your physician. Follow up: Private Physician; When: 2 - 3 days; Reason: Recheck today's complaints, Continuance of care, Re-evaluation by your physician. Follow up: Jacinto Wiley MD; When: 2 - 3 days; Reason: Recheck today's complaints, Re-evaluation by your physician. - Problem is new. - Symptoms have improved. Signatures: Dispatcher [employer] EDMS Alan Moss MD MD cha Smirch, Shelby, LETICIA RN Diane Coffman RN RN tw2 Corrections: (The following items were deleted from the chart) 16:17 16:00 07/01/2020 16:00 Discharged to Home. Impression: Other chest pain. Condition is tw2 Stable. Forms are Medication Reconciliation Form, Thank You Letter, Antibiotic Education, Prescription Opioid Use. Follow up: Dada Chavez; When: 2 - 3 days; Reason: Recheck today's complaints, Continuance of care, Re-evaluation by your physician. Follow up: Private Physician; When: 2 - 3 days; Reason: Recheck today's complaints, Continuance of care, Re-evaluation by your physician. Follow up: Jacinto Wiley; When: 2 - 3 days; Reason: Recheck today's complaints, Re-evaluation by your physician. Problem is new. Symptoms have improved. ulysses
[2020-07-01 16:23] VITALS: TEMP 97.7
[2020-07-01 16:25] VITALS: BP 129/87; O2SAT 99
== END 2020-07-01 16:17 | disposition home or self-care (01) ==
LOC: ER 13:22
DX: R07.89 Other chest pain (principal); K21.9 Gastro-esophageal reflux disease without esophagitis
CPT/HCPCS: 36415; 71045; 80048; 80076; 80307; 81003; 81025; 83690; 83735; 83880; 84484; 85025; 85379; 96360; 96361; 99285; J7030

== ENCOUNTER 2025-04-05 22:46 | Emergency (ER) | payer BC, OTHER ==
[2025-04-06] MEDS ORDERED: LIDOCAINE 2% W/EPI 1:200,000 MPF 20 ML VIAL IM ONE (00:44)
[2025-04-06] MEDS ORDERED: MORPHINE 4 MG/ML SYR ONE (00:45)
[2025-04-06] MEDS ORDERED: NA CHLORIDE 0.9% 1,000 ML ONE (00:45)
[2025-04-06] MEDS ORDERED: CLINDAMYCIN 900MG/D5W 900 MG/50 ML IVPB IV ONE (00:45)
[2025-04-06 00:50] LABS: Absolute Lymphocytes (CBC) 1.6 K/uL (0.7-4.9); Hematocrit 37.3 % (36.0-45.0); Hemoglobin 11.7 g/dL (12.0-15.0); MCH 24.0 pg (27.0-35.0); MCHC 31.5 g/dL (32.0-36.0); MCV 76.2 fL (80-100); MPV 7.5 fL (7.6-11.3); Nucleated RBC Absolute Count 0.0 (0-0); Nucleated Red Blood Cells % 0.1 % (0-0); RBC Red Blood Cell Count 4.89 M/uL (3.86-4.86); White Blood Count 7.90 thou/uL (4.3-10.9)
[2025-04-06 01:08] LABS: Anion Gap 8.0 mEq/L (5.0-15.0); BUN Blood Urea Nitrogen 12.0 mg/dL (7-18); Glucose Level 91.0 mg/dL (74-106); Potassium 4.0 mEq/L (3.5-5.1)
--- NOTE | 2025-04-06 02:44 | ER ---
Nurse's Notes [facility] Name: Tatyana Becerril Age: 39 yrs Sex: Female : 1985 Arrival Date: 04/05/2025 Time: 22:46 Bed 16 Private MD: Diagnosis: Cutaneous abscess of right axilla;Cellulitis of right upper limb Presentation: 04/05 22:56 Chief complaint: Patient states: SWELLING ON THE RIGHT AXILLARY AREA. FOR THE PAST TWO ha1 DAYS. POSSIBLE INGROWN HAIR. Coronavirus screen: Client denies travel out of the [place] in the last 14 days. Ebola Screen: No symptoms or risks identified at this time. Initial Sepsis Screen: Does the patient meet any 2 criteria? No. Patient's initial sepsis screen is negative. Does the patient have a suspected source of infection? No. Patient's initial sepsis screen is negative. Risk Assessment: Do you want to hurt yourself or someone else? Patient reports no desire to harm self or others. Onset of symptoms was April 05, 2025. 22:56 Method Of Arrival: Ambulatory ha1 22:56 Acuity: [place] 4 ha1 Triage Assessment: 22:59 General: Appears comfortable, Behavior is calm, cooperative. Pain: Complains of pain in ha1 right axilla Pain currently is 8 out of 10 on a pain scale. Quality of pain is described as aching. Neuro: Level of Consciousness is awake, alert, obeys commands, Oriented to person, place, time, situation. Cardiovascular: Capillary refill < 3 seconds Patient's skin is warm and dry. Respiratory: Airway is patent Respiratory effort is even, unlabored, Respiratory pattern is regular, symmetrical. GI: No signs and/or symptoms were reported involving the gastrointestinal system. : No signs and/or symptoms were reported regarding the genitourinary system. Derm: Skin is normal. Musculoskeletal: Circulation, motion, and sensation intact. Historical: - Allergies: 22:59 No Known Allergies; ha1 - PMHx: 22:59 GERD; ha1 - Immunization history:: Adult Immunizations up to date. - Infectious Disease History:: Denies. - Social history:: Smoking status: Patient denies any tobacco usage or history of. Screenin/18 00:21 [facility] ED Fall Risk Assessment (Adult) History of falling in the last 3 months, kt5 including since admission No falls in past 3 months (0 pts) Confusion or Disorientation No (0 pts) Intoxicated or Sedated No (0 pts) Impaired Gait No (0 pts) Mobility Assist Device Used No (0 pt) Altered Elimination No (0 pt) Score/Fall Risk Level 0 - 2 = Low Risk Oriented to surroundings, Maintained a safe environment. Abuse screen: Denies threats or abuse. Nutritional screening: No deficits noted. Tuberculosis screening: No symptoms or risk factors identified. Assessment: 00:21 General: Appears in no apparent distress. uncomfortable, Behavior is calm, cooperative, kt5 appropriate for age. Pain: Complains of pain in right arm and left axilla Pain currently is 10 out of 10 on a pain scale. Quality of pain is described as burning, sharp, Pain began 2-3 days ago. Neuro: No deficits noted. Mercedes Agitation-Sedation Scale (RASS): 0 - Alert and Calm Level of Consciousness is awake, alert, obeys commands, Oriented to person, place, time, situation, Appropriate for age. Cardiovascular: Denies chest pain, Heart tones S1 S2 present Capillary refill < 3 seconds Clubbing of nail beds is present JVD is present. Respiratory: No deficits noted. Airway is patent Trachea midline Respiratory effort is even, unlabored, Respiratory pattern is regular, symmetrical. GI: No deficits noted. No signs and/or symptoms were reported involving the gastrointestinal system. : No deficits noted. No signs and/or symptoms were reported regarding the genitourinary system. EENT: No deficits noted. No signs and/or symptoms were reported regarding the EENT system. Derm: Skin is intact, is healthy with good turgor, Skin is dry, Skin is pink, warm \T\ dry. normal, Wound noted right arm and left axilla Wound is abscess noted under both arms. Musculoskeletal: No deficits noted. No signs and/or symptoms reported regarding the musculoskeletal system. 01:49 Reassessment: Patient appears in no apparent distress at this time. No changes from kt5 previously documented assessment. Patient and/or family updated on plan of care and expected duration. Pain level reassessed. Patient is alert, oriented x 3, equal unlabored respirations, skin warm/dry/pink. Patient states feeling better. Patient states symptoms have improved. 02:09 General: PA at for I\T\D. kt5 03:08 Reassessment: Patient appears in no apparent distress at this time. No changes from kt5 previously documented assessment. Patient and/or family updated on plan of care and expected duration. Pain level reassessed. Patient is alert, oriented x 3, equal unlabored respirations, skin warm/dry/pink. Vital Signs: 04/05 22:56 BP 143 / 93; Pulse 82; Resp 18 S; Temp 97.9(O); Pulse Ox 100% on R/A; Weight 81.65 kg; ha1 Height 5 ft. 3 in. ; Pain 8/10; 04/06 01:50 BP 133 / 85; Pulse 78; Resp 16; Pulse Ox 100% ; Pain 3/10; kt5 03:08 BP 142 / 89; Pulse 80; Resp 19; Temp 98.4; Pulse Ox 100% ; kt5 04/05 22:56 Body Mass Index 31.89 (81.65 kg, 160.02 cm) [facility] 04/05 22:56 Pain Scale: Adult [facility] 04/06 01:50 Pain Scale: Adult kt5 ED Course: 04/05 22:50 Patient arrived in ED. al6 22:55 Alan Mane PA-C is PHCP. cp 22:55 Mic Martinez DO is Attending Physician. cp 22:59 Triage completed. [facility] 04/06 00:21 Assist provider with I \T\ D:. kt5 00:21 Patient has correct armband on for positive identification. Bed in low position. Call kt5 light in reach. Side rails up X 1. Adult w/ patient. Client placed on continuous cardiac and pulse oximetry monitoring. NIBP monitoring applied. Door closed. Noise minimized. Warm blanket given. Pillow given. Family accompanied patient. 00:39 Yazmin Garza, RN is Primary Nurse. kt5 00:39 CBC with Diff Sent. kt5 00:50 Inserted saline lock: 20 gauge in left antecubital area, using aseptic technique. Blood kt5 collected. Flushed with 10 mL NS. 00:58 BMP Sent. kt5 00:58 CBC with Diff Sent. kt5 02:43 Anjum Hollins MD is Referral Physician. cp 03:28 IV discontinued, intact, bleeding controlled, No redness/swelling at site. Pressure kt5 dressing applied. 03:28 Provided Education on: FOLLOW UP AND MEDS. kt5 Administered Medications: 00:56 Drug: morphine IVP or IV 4 mg IVP once over 4 mins Route: IVP; Infused Over: 4 mins; kt5 Site: left antecubital; 01:49 Follow up: Response: No adverse reaction; Pain is decreased kt5 00:56 Drug: NS 0.9% IV 1000 ml IV at 1000 ml once; to be given as a bolus over 60 minutes kt5 Route: IV; Rate: 1000 ml; Site: left antecubital; :49 Follow up: IV Status: Completed infusion; IV Intake: 1000ml kt5 00:56 Drug: Clindamycin IVPB 900 mg IVPB once over 30 mins; (mix in 50 mL) Route: IVPB; kt5 Infused Over: 30 mins; Site: left antecubital; 01:48 Follow up: Response: No adverse reaction; IV Status: Completed infusion; IV Intake: [id number] 02:20 Drug: Lidocaine Infiltration (2 %) 20 ml 5 ml Infiltration once; to bedside with kt5 epinephrine Volume: 5 ml; Route: Infiltration; 02:54 Follow up: Response: No adverse reaction kt5 03:03 Drug: Trimethoprim-Sulfamethoxazole PO (160 mg-800 mg (DS) 1 tablet PO once Route: PO; kt5 03:30 Follow up: Response: No adverse reaction kt5 03:04 Drug: Hydrocodone-Acetaminophen PO (7.5 mg-325 mg) 1 tabs PO once; RASS on ADMIN: kt5 Combtv4, Very Agttd3, Agttd2, Rstlss1, AlertClm0, Drwsy-1, Lt Sdtn-2, Mod Sdtn-3, Dp Sdtn-4, UnArsble-5 Route: PO; 03:30 Follow up: Response: No adverse reaction; Pain is decreased kt5 Medication: 00:21 VIS not applicable for this client. kt5 Intake: 01:48 IV: 50ml; Total: 50ml. kt5 01:49 IV: 1000ml; Total: 1050ml. kt5 Outcome: 02:44 Discharge ordered by MD. sousa 03:28 Discharged to home ambulatory, with family, kt5 03:28 Condition: improved 03:28 Discharge instructions given to patient, Instructed on discharge instructions, follow up and referral plans. Demonstrated understanding of instructions, follow-up care, medications, Prescriptions given X 4, 03:30 Patient left the ED. kt5 Signatures: Alan Mane PA-C PA-C cp Ayala, Heidy RN RN ha1 Alba Powell6 Yazmin Garza RN RN kt5
--- NOTE | 2025-04-06 02:44 | EDPHYS ---
Physician Documentation [facility] Name: Tatyana Becerril Age: 39 yrs Sex: Female : 1985 Arrival Date: 04/05/2025 Time: 22:46 Bed 16 Private MD: ED Physician Mic Martinez HPI: 04/05 23:00 This 39 yrs old Black Female presents to ER via Ambulatory with complaints of Abscess. cp 23:00 The patient presents with an abscess of the right axilla, the patient presents with a cp swollen area of the left axilla. Description: erythematous, fluctuant, swollen, warm. 23:00 Possible cause(s): unknown. cp 23:00 Associated signs and symptoms: Pertinent negatives: discharge, drainage, fever, cp vomiting. Historical: - Allergies: 22:59 No Known Allergies; ha1 - PMHx: 22:59 GERD; ha1 - Immunization history:: Adult Immunizations up to date. - Infectious Disease History:: Denies. - Social history:: Smoking status: Patient denies any tobacco usage or history of. ROS: 23:00 Constitutional: Negative for body aches, chills, fever, poor PO intake, cp 23:00 Skin: Positive for abscess, swelling, of the left axilla and right axilla, cp Exam: 23:05 Constitutional: The patient appears in no acute distress, alert, awake, cp non-diaphoretic, non-toxic, well developed, well nourished, uncomfortable, 23:05 Head/Face: Normocephalic, atraumatic. cp 23:05 Eyes: Periorbital structures: appear normal, Conjunctiva: normal, no exudate, no injection, Sclera: no appreciated abnormality, Lids and lashes: appear normal, bilaterally, 23:05 ENT: External ear(s): are unremarkable, Nose: is normal, Mouth: Lips: moist, Oral mucosa: moist, Posterior pharynx: Airway: no evidence of obstruction, patent, 23:05 Chest/axilla: Inspection: normal, Axilla: right axilla with golf ball size abscess and induration, mild surrounding erythema and swelling. left axilla with 2 small areas of swelling, tender masses, minimal erythema and surrounding swelling, 23:05 Cardiovascular: Rate: normal, Rhythm: regular, 23:05 Respiratory: the patient does not display signs of respiratory distress, Respirations: normal, no use of accessory muscles, no retractions, labored breathing, is not present, Breath sounds: are clear throughout, no decreased breath sounds, no stridor, no wheezing, 23:05 Abdomen/GI: Inspection: abdomen appears normal, Palpation: abdomen is soft and non-tender, in all quadrants, 23:05 Neuro: Orientation: to person, place \T\ time. Mentation: is normal, Vital Signs: 22:56 BP 143 / 93; Pulse 82; Resp 18 S; Temp 97.9(O); Pulse Ox 100% on R/A; Weight 81.65 kg; ha1 Height 5 ft. 3 in. ; Pain 8/; 04/06 01:50 BP 133 / 85; Pulse 78; Resp 16; Pulse Ox 100% ; Pain 3/10; kt5 03:08 BP 142 / 89; Pulse 80; Resp 19; Temp 98.4; Pulse Ox 100% ; kt5 04/05 22:56 Body Mass Index 31.89 (81.65 kg, 160.02 cm) 1 04/05 22:56 Pain Scale: Adult ha1 04/06 01:50 Pain Scale: Adult kt5 MDM: 04/05 22:55 Medical Screening Exam initiated cp 04/06 02:44 Data reviewed: vital signs, nurses notes, lab test result(s), and as a result, I will cp discharge patient. 02:44 Differential diagnosis: abscess, cellulitis, insect bite, sepsis. I considered the cp following discharge prescriptions or medication management in the emergency department Medications were administered in the Emergency Department. See MAR. Counseling: I had a detailed discussion with the patient and/or guardian regarding the historical points, exam findings, and any diagnostic results supporting the discharge/admit diagnosis, lab results, the need for outpatient follow up, a general surgeon, to return to the emergency department if symptoms worsen or persist or if there are any questions or concerns that arise at home. Response to treatment: the patient's symptoms have mildly improved after treatment, and as a result, I will discharge patient. 04/06 00:20 Order name: CBC with Diff; Complete Time: 02:02 cp 04/06 02:37 Interpretation: Normal except: RBC 4.89; HGB 11.7; MCV 76.2; MCH 24.0; MCHC 31.5; MPV cp 7.5. 04/06 00:20 Order name: BMP; Complete Time: 02:02 cp 04/06 00:20 Order name: IV Saline Lock; Complete Time: 00:39 cp 04/06 00:20 Order name: Labs collected and sent; Complete Time: 00:39 cp 04/06 00:20 Order name: I\T\D Setup; Complete Time: 02:20 cp Administered Medications: 00:56 Drug: morphine IVP or IV 4 mg IVP once over 4 mins Route: IVP; Infused Over: 4 mins; kt5 Site: left antecubital; 01:49 Follow up: Response: No adverse reaction; Pain is decreased kt5 00:56 Drug: NS 0.9% IV 1000 ml IV at 1000 ml once; to be given as a bolus over 60 minutes kt5 Route: IV; Rate: 1000 ml; Site: left antecubital; 01:49 Follow up: IV Status: Completed infusion; IV Intake: 1000ml kt5 00:56 Drug: Clindamycin IVPB 900 mg IVPB once over 30 mins; (mix in 50 mL) Route: IVPB; kt5 Infused Over: 30 mins; Site: left antecubital; 01:48 Follow up: Response: No adverse reaction; IV Status: Completed infusion; IV Intake: [id number] 02:20 Drug: Lidocaine Infiltration (2 %) 20 ml 5 ml Infiltration once; to bedside with kt5 epinephrine Volume: 5 ml; Route: Infiltration; 02:54 Follow up: Response: No adverse reaction kt5 03:03 Drug: Trimethoprim-Sulfamethoxazole PO (160 mg-800 mg (DS) 1 tablet PO once Route: PO; kt5 03:30 Follow up: Response: No adverse reaction kt5 03:04 Drug: Hydrocodone-Acetaminophen PO (7.5 mg-325 mg) 1 tabs PO once; RASS on ADMIN: kt5 Combtv4, Very Agttd3, Agttd2, Rstlss1, AlertClm0, Drwsy-1, Lt Sdtn-2, Mod Sdtn-3, Dp Sdtn-4, UnArsble-5 Route: PO; 03:30 Follow up: Response: No adverse reaction; Pain is decreased kt5 Disposition: 06:02 Co-signature as Attending Physician, Mic Martinez DO I reviewed the patient's care tt7 provided by the Advanced Practice Provider and agree with the diagnosis and treatment plan. Disposition Summary: 04/06/25 02:44 Discharge Ordered Notes: Location: Home cp Problem: new cp Symptoms: have improved cp Condition: Stable cp Diagnosis - Cutaneous abscess of right axilla cp - Cellulitis of right upper limb cp Followup: cp - With: Anjum Hollins MD - When: 2 - 3 days - Reason: Wound Recheck Discharge Instructions: - Discharge Summary Sheet cp - Skin Abscess cp - Cellulitis, Adult cp - Incision and Drainage cp Forms: - Medication Reconciliation Form cp - Antibiotic Education cp - Prescription Opioid Use cp - Patient Portal Instructions cp - Leadership Thank You Letter cp Prescriptions: - Clindamycin HCl 300 mg Oral Capsule - take 1 capsule ORAL route every 6 hours for 10 days; 40 capsule; Refills: 0, cp Product Selection Permitted - Ibuprofen 800 mg Oral Tablet - take 1 tablet ORAL route every 8 hours As needed take with food; 30 tablet; cp Refills: 0, Product Selection Permitted - Bactrim DS 800-160 mg Oral Tablet - take 1 tablet ORAL route every 12 hours for 10 days; 20 tablet; Refills: 0, cp Product Selection Permitted - Tylenol-Codeine #3 300mg-30mg Oral tablet - take 1 tablet ORAL route every 4 hours As needed; 12 tablet; Refills: 0, cp Product Selection Permitted Signatures: Dispatcher [employer] Alan Clayton PA-C PA-C cp Aleena Suarez RN RN 1 Yazimn Garza RN RN kt5 Mic Martinez DO DO tt7
[2025-04-06 11:09] VITALS: O2SAT 100
[2025-04-06 11:12] VITALS: BP 142/89; TEMP 98.4
== END 2025-04-06 03:30 | disposition home or self-care (01) ==
LOC: ER 22:46
DX: L02.411 Cutaneous abscess of right axilla (principal); L03.111 Cellulitis of right axilla
CPT/HCPCS: 96365; 85025; 80048; 36415; 96375; 99285; J7030